=== PATIENT | male | born 1950 | race Caucasian/White ===

== ENCOUNTER 2017-03-25 14:07 | Observation (INO) | payer MEDICARE, OTHER ==
[~2017-03-25] VITALS: Ht 167.6 cm; Wt 70.8 kg
[2017-03-25] MEDS ORDERED: LOSARTAN POT25 MG PO (14:45)
[2017-03-25] MEDS ORDERED: ASPIRIN81 MG PO (14:45)
[2017-03-25] MEDS ORDERED: CARVEDILOL3.125 MG PO (14:47)
[2017-03-25] MEDS ORDERED: GABAPENTIN100 MG PO (14:47)
[2017-03-25] MEDS ORDERED: KLS OMEPRAZOLE20 MG PO (14:48)
[2017-03-25] MEDS ORDERED: RAPAFLO8 MG PO (14:49)
[2017-03-25] MEDS ORDERED: NIFEDICAL XL60 MG PO (14:49)
[2017-03-25 14:50] LABS: HEMATOCRIT 43.7 % (39.0-50.0); HEMOGLOBIN 14.1 g/dl (14.0-18.0); IMMATURE GRANULOCYTES 0.1 % (0.0-1.0); MEAN CELL VOLUME 92.4 fL CALC (80.0-100.0); MEAN CORPUSCULAR HGB 29.8 pG CALC (26.0-32.0); MEAN CORPUSCULAR HGB CONC 32.3 g/L CALC (32.0-36.0); NEUT# 6.72 thou/uL (1.82-7.42); RED BLOOD COUNT 4.73 mill/uL (4.70-6.10); RED CELL DISTRI WIDTH 12.6 % (11.5-15.5)
[2017-03-25] MEDS ORDERED: MELOXICAM7.5 MG PO (14:50)
[2017-03-25] MEDS ORDERED: ZOLPIDEM ER12.5 MG PO (14:50)
[2017-03-25] MEDS ORDERED: CLONAZEPAM1 MG PO (14:50)
[2017-03-25] MEDS ORDERED: NORTRIPTYLIN25 MG PO (14:51)
[2017-03-25] MEDS ORDERED: AMITRIPTYLIN25 MG PO (14:51)
[2017-03-25 15:06] LABS: AMYLASE 101 u/l (30-110); LIPASE 145 u/l (23-300)
[2017-03-25 15:07] LABS: ALBUMIN 4.4 g/dL (3.2-5.0); ALKALINE PHOSPHATASE 75 u/l (38-126); ANION GAP 18 (6-22 (CALC)); BILIRUBIN, TOTAL 1.2 mg/dL (0.0-1.4); BUN 22 mg/dL (8-23); BUN/CREATININE RATIO 24 (12-20 (CALC)); CALCIUM 9.4 mg/dL (8.4-10.2); CARBON DIOXIDE 29 mmol/l (22-30); CHLORIDE 98 mmol/l (95-108); CREATININE 0.9 mg/dL (0.7-1.3); GFR > 60 ML/MIN (>=60 (CALC)); GFR FOR AFR.AMER. > 60 ML/MIN (>=60 (CALC)); GLUCOSE 118 mg/dL (82-115); POTASSIUM 4.5 mmol/l (3.5-5.1); SGOT/AST 226 u/l (19-48); SGPT/ALT 104 u/l (11-66); SODIUM 139 mmol/l (137-146); TOTAL PROTEIN 7.5 g/dL (6.3-8.2)
[2017-03-25 15:19] LABS: MYOGLOBIN 53 ng/mL (0 - 121)
[2017-03-25 17:41] LABS: URINE BILIRUBIN - DIPSTICK NEGATIVE (NEGATIVE); URINE BLOOD DIPSTICK NEGATIVE (NEGATIVE); URINE CLARITY CLEAR; URINE COLOR YELLOW; URINE GLUCOSE - DIPSTICK NEGATIVE (NEGATIVE); URINE KETONE NEGATIVE (NEGATIVE); URINE LEUK ESTERASE NEGATIVE (NEGATIVE); URINE NITRITE - DIPSTICK NEGATIVE (Negative); URINE PH 5.5 (4.5-8.0); URINE PROTEIN - DIPSTICK NEGATIVE (NEG-TRACE); URINE SPECIFIC GRAVITY <=1.005; URINE UROBILINOGEN - DIPSTICK 0.2 E.U./dL (0.2)
[2017-03-25 18:07] VITALS: BP 150/78
[2017-03-25 19:30] VITALS: BP 116/62
[2017-03-25 23:50] VITALS: BP 97/62
[2017-03-26] VITALS (7 sets, daily range): BP systolic 90–118; BP diastolic 51–70
[2017-03-26 02:56] LABS: ALBUMIN 3.8 g/dL (3.2-5.0); ALKALINE PHOSPHATASE 128 u/l (38-126); ANION GAP 14 (6-22 (CALC)); BILIRUBIN, TOTAL 1.2 mg/dL (0.0-1.4); BUN 19 mg/dL (8-23); BUN/CREATININE RATIO 22 (12-20 (CALC)); CALCIUM 8.8 mg/dL (8.4-10.2); CALCULATED LDLCHOLESTEROL 65 mg/dL (62-129 (CALC)); CARBON DIOXIDE 29 mmol/l (22-30); CHLORIDE 100 mmol/l (95-108); CHOLESTEROL HDL RATIO 2.8 (<4.4 (CALC)); CREATININE 0.9 mg/dL (0.7-1.3); GFR > 60 ML/MIN (>=60 (CALC)); GFR FOR AFR.AMER. > 60 ML/MIN (>=60 (CALC)); GLUCOSE 106 mg/dL (82-115); HDL CHOLESTEROL 46 mg/dL (>=40); POTASSIUM 4.1 mmol/l (3.5-5.1); SGOT/AST 727 u/l (19-48); SGPT/ALT 591 u/l (11-66); SODIUM 139 mmol/l (137-146); TOTAL CHOLESTEROL 129 mg/dl (0-199); TOTAL PROTEIN 6.4 g/dL (6.3-8.2); TOTAL TRIGLYCERIDES 89 mg/dl (30-149); VLDL CHOLESTROL 18 mg/dl (4-45 (CALC))
[2017-03-27 00:10] VITALS: BP 110/70
[2017-03-27 04:05] VITALS: BP 118/69
[2017-03-27 06:06] LABS: HEMATOCRIT 40.3 % (39.0-50.0); HEMOGLOBIN 12.9 g/dl (14.0-18.0); IMMATURE GRANULOCYTES 0.2 % (0.0-1.0); MEAN CELL VOLUME 92.9 fL CALC (80.0-100.0); MEAN CORPUSCULAR HGB 29.7 pG CALC (26.0-32.0); NEUT# 3.83 thou/uL (1.82-7.42); RED BLOOD COUNT 4.34 mill/uL (4.70-6.10); RED CELL DISTRI WIDTH 12.9 % (11.5-15.5)
[2017-03-27 06:12] LABS: ALBUMIN 3.5 g/dL (3.2-5.0); ALKALINE PHOSPHATASE 111 u/l (38-126); AMYLASE 44 u/l (30-110); ANION GAP 15 (6-22 (CALC)); BILIRUBIN, TOTAL 0.5 mg/dL (0.0-1.4); BUN 15 mg/dL (8-23); BUN/CREATININE RATIO 20 (12-20 (CALC)); CALCIUM 9.2 mg/dL (8.4-10.2); CARBON DIOXIDE 27 mmol/l (22-30); CHLORIDE 104 mmol/l (95-108); CREATININE 0.7 mg/dL (0.7-1.3); GFR > 60 ML/MIN (>=60 (CALC)); GFR FOR AFR.AMER. > 60 ML/MIN (>=60 (CALC)); GLUCOSE 88 mg/dL (82-115); LIPASE 44 u/l (23-300); POTASSIUM 3.6 mmol/l (3.5-5.1); SGOT/AST 203 u/l (19-48); SGPT/ALT 320 u/l (11-66); SODIUM 143 mmol/l (137-146); TOTAL PROTEIN 6.1 g/dL (6.3-8.2)
[2017-03-27 08:53] VITALS: BP 119/75
[2017-03-27 09:13] VITALS: BP 119/75
== END 2017-03-27 13:40 | disposition home or self-care (01) ==
LOC: ED 14:07 → ED-I 15:29 → ED 15:48 → MS2 15:49
PROVIDERS: Emergency Medicine; Internal Medicine; ADMIT Internal Medicine; ATTEND Internal Medicine
DX: K21.9 Gastro-esophageal reflux disease without esophagitis (principal); I10 Essential (primary) hypertension; E11.42 Type 2 diabetes mellitus with diabetic polyneuropathy; I25.10 Atherosclerotic heart disease of native coronary artery without angina pectoris; N40.0 Benign prostatic hyperplasia without lower urinary tract symptoms; E78.5 Hyperlipidemia, unspecified; F41.9 Anxiety disorder, unspecified; R79.89 Other specified abnormal findings of blood chemistry; Z87.891 Personal history of nicotine dependence; Z98.84 Bariatric surgery status; R07.89 Other chest pain
CPT/HCPCS: J1650

== ENCOUNTER 2017-11-26 21:45 | Inpatient (IN) | payer MEDICARE, OTHER ==
[~2017-11-26] VITALS: Ht 167.6 cm; Wt 69.5 kg
[~2017-11-26 21:45] MED LIST: AMITRIPTYLIN25 MG PO; AMOX/K CLAV875 M1 PO; ASPIRIN81 MG PO; CARVEDILOL3.125 MG PO; CLONAZEPAM1 MG PO; DOXYCYCL HYC100 MG PO; FLORASTOR250 M1 PO; GABAPENTIN100 MG PO; KLS OMEPRAZOLE20 MG PO; LOSARTAN POT25 MG PO; MELOXICAM7.5 MG PO; NIFEDICAL XL60 MG PO; NORTRIPTYLIN25 MG PO; PERCOCET 5/321 COMBO PO; RAPAFLO8 MG PO; ZOLPIDEM ER12.5 MG PO
--- NOTE | 2017-11-26 22:08 | NUR ---
L FOOT SWOLLEN , C/O PAIN.
--- NOTE | 2017-11-26 22:08 | NUR ---
DR BERG AT BEDSIDE.
--- NOTE | 2017-11-26 22:25 | NUR ---
DR BERG AT BEDSIDE, HOLD TORADOL
[2017-11-26 22:29] LABS: IMMATURE GRANULOCYTES 0.2 % (0.0-1.0); MEAN CELL VOLUME 91.2 fL CALC (80.0-100.0); MEAN CORPUSCULAR HGB 29.3 pG CALC (26.0-32.0); MEAN CORPUSCULAR HGB CONC 32.1 g/L CALC (32.0-36.0); NEUT# 3.57 thou/uL (1.82-7.42); RED BLOOD COUNT 2.97 mill/uL (4.70-6.10); RED CELL DISTRI WIDTH 12.6 % (11.5-15.5)
[2017-11-26 22:32] LABS: HEMOGLOBIN 8.7 g/dl (14.0-18.0)
[2017-11-26 22:33] LABS: HEMATOCRIT 27.1 % (39.0-50.0)
--- NOTE | 2017-11-26 22:33 | NUR ---
ORTHO VS FLAT 90/56 P 69 SITTING 97/61 P72 UNABLE TO STAND DUE TO FOOT INJURY
--- NOTE | 2017-11-26 22:39 | NUR ---
PT TO CT.
[2017-11-26 22:48] LABS: ALBUMIN 3.6 g/dL (3.2-5.0); ALKALINE PHOSPHATASE 50 u/l (38-126); ANION GAP 17 (6-22 (CALC)); BILIRUBIN, TOTAL 0.2 mg/dL (0.0-1.4); BUN 53 mg/dL (8-23); BUN/CREATININE RATIO 51 (12-20 (CALC)); CARBON DIOXIDE 26 mmol/l (22-30); CHLORIDE 101 mmol/l (95-108); GFR > 60 ML/MIN (>=60 (CALC)); GFR FOR AFR.AMER. > 60 ML/MIN (>=60 (CALC)); POTASSIUM 4.1 mmol/l (3.5-5.1); SGOT/AST 27 u/l (19-48); SGPT/ALT 31 u/l (11-66); SODIUM 139 mmol/l (137-146)
--- NOTE | 2017-11-26 22:54 | NUR ---
PT RETURNED FROM CT.
[2017-11-26 22:58] LABS: MYOGLOBIN 54 ng/mL (0 - 121)
--- NOTE | 2017-11-26 23:05 | NUR ---
DR BERG AT BEDSIDE, RECTAL EXAM PERFORMED. GUIAC NEGATIVE.
--- NOTE | 2017-11-26 23:10 | NUR ---
OK TO GIVE TORADOL AT THIS TIME PER DR BERG. TORADOL GIVEN ORDERED.
[2017-11-26 23:15] LABS: INTERNATIONAL NORMALIZED RATIO 1.1 RATIO (0.7-1.3)
--- NOTE | 2017-11-26 23:50 | NUR ---
ENCOURAGED PT TO PROVIDE UA SPECIMAN.
[2017-11-27] VITALS (15 sets, daily range): BP systolic 92–127; BP diastolic 46–79
--- NOTE | 2017-11-27 00:49 | NUR ---
NO URINE AT THIS TIME. POSTERIOR OCL PLACED TO L FOOT. CMS INTACT.
--- NOTE | 2017-11-27 01:02 | NUR ---
REPORT CALLED TO GERARDO BOLANOS.
--- NOTE | 2017-11-27 01:12 | NUR ---
PT COND STABLE. PT TO RM 270 WITH RN ON TELE.
--- NOTE | 2017-11-27 01:14 | NUR ---
CMS INTACT TO L FOOT AFTER TRANSFER TO RM 270.
--- NOTE | 2017-11-27 02:00 | NUR ---
PATIENT ADMITTED FROM ER VIA STRETCHER WITH ER STAFF IN ATTENDANCE. PATIENT IS AWAKE ALERT AND ORIENTEDX3. ABLE TO ASSIST WITH TRANSFER TO THE BED. PATIENT WITH OCL SPLINT TO LLE-ADMITTED WITH LEFT FOOT METATARSALS FX. CMS TO LEFT FOOT WNL. PATIENT WITH IV SITE TO LEFT AC-SITE APPEARS HEALTHY WITH GOOD BLOOD RETURN. IVF NS HUNG AND INFUSING AT 125CC/HR. PATIENT INSTRUCTED REGUARDING URINE SPEC FOR LAB NEEDED-URINAL IN REACH. PATIENT DENIES ANY S/S OF BLEEDING-URINE CLEAR YELLOW, BM'S WNL-DENIES ANY DARK OR BLACK STOOLS, NO RECTAL BLEEDING. LUNGS ARE CLEAR. ABD IS SOFT WITH BS+. NO PEDAL EDEMA NOTED. PULSES ARE PALPABLE. TELE MONITORING DEVICE IN PLACE. PATIENT PROVIDED WITH PO FLUIDS. ORIENTED TO ROOM AND SURROUNDINGS. INSTRUCTED ON U SE OF NURSE CALL LIGHT SYSTEM TV REMOTE. SAFETY PRECAUTIONS REINFORCED. CALL LIGHT IN REACH. WILL CONT TO MONITOR.
--- NOTE | 2017-11-27 04:00 | NUR ---
PATIENT RESTING IN BED WITH LLE ELEVATED ON PILLOW. CMS TO LEFT TOES WNL. VOIDED 750CC OF CLEAR YELLOW URINE IN URINAL. URINE SPEC OBTAINED AND SENT TO LAB. IVF PATENT AND INFUSING ORDERED TO LEFT AC-SITE IS HEALTHY. SAFETY PRECAUTIONS REINFORCED.CALL LIGHT IN REACH. WILL CONT TO MONITOR.
--- NOTE | 2017-11-27 04:39 | NUR ---
PATIENT MEDICATED FOR LEFT FOOT PAIN WITH PERCOCET 5/325MG PO FOR 7/10 ON PAIN SCALE. CALL LIGHT IN REACH. WILL CONT TO MONITOR.
[2017-11-27 04:55] LABS: URINE BILIRUBIN - DIPSTICK NEGATIVE (NEGATIVE); URINE BLOOD DIPSTICK NEGATIVE (NEGATIVE); URINE CLARITY CLEAR; URINE COLOR YELLOW; URINE GLUCOSE - DIPSTICK NEGATIVE (NEGATIVE); URINE KETONE NEGATIVE (NEGATIVE); URINE LEUK ESTERASE NEGATIVE (NEGATIVE); URINE NITRITE - DIPSTICK NEGATIVE (Negative); URINE PH 5.5 (4.5-8.0); URINE PROTEIN - DIPSTICK NEGATIVE (NEG-TRACE); URINE UROBILINOGEN - DIPSTICK 0.2 E.U./dL (0.2)
--- NOTE | 2017-11-27 07:00 | NUR ---
REPORT RECEIVED BY BRAIN. PT IS SEMI FOWLERS IN BED WITH NO S/S OF DISTRESS NOTED. PT DENIES NEEDS AT THIS TIME. CALLL LIGHT IN REACH.
--- NOTE | 2017-11-27 07:50 | NUR ---
NOTIFIED DR. ZAPATA RE: PT COMPLAINING OF ITCHING ALL OVER HIS BODY AND NO RASH NOTED. PT STATED THAT HE HAS BEEN ITCHING FOR A FEW HOURS NOW. ORDERS RECEIVED FOR BENADRYL 25MG.
--- NOTE | 2017-11-27 07:54 | NUR ---
DR. NOGUERA'S OFFICE WAS CALLED @ 07:[address] ANAND. I GAVE HIM THE INFORMATION REGARDING THE CONSULT WITH DR. AVELINO NOGUERA.
--- NOTE | 2017-11-27 08:00 | NUR ---
ASSESSMENT DONE RESPS EVEN AND UNLABORED. TELE IN PLACE AND PT IS A&O X3. NS 125ML/HR INFUSING WELL. PT STATED PAIN IS 6/10 IN LEFT FOOT. TOLD PT WILL MEDICATED SOON MEDICATION IS DUE. PT VERBALIZED UNDERSTANDING. ELEVATED PT LEFT FOOT ON PILLOWS. SAFETY PRECAUTIONS REINFORCED AND CALL LIGHT IN REACH.
--- NOTE | 2017-11-27 08:45 | NUR ---
MIKO MCKEE ASSISTED PT TO THE WHEELCHAIR TO GO DOWN FOR HIS CT. THEN MIKO CALLED THAT PT IS UNRESPONSIVE IN WHEELCHAIR IN ROOM. PT HEAD IS LEANING BACK WITH EYES OPEN BUT UNRESPONSIVE. CHEST IS RISING. CALLED OUT FOR CICI BURT. MIKO AND I ASSISTED PT BACK TO BED. 02 APPLIED AT 2L/MIN VIA NC. CHEST RUB DONE ON PT AND PT IS RESPONSIVE. PT STATES HE FEELS WEAK.
--- NOTE | 2017-11-27 08:46 | NUR ---
MIKO MCKEE CALLED FOR CLINICAL SUPPORT. ALIE FROM ED ARRIVE AND RT KAY. INVOICE CHECKER URSULA ALSO IN ROOM. PER ALIE PT PULSE IS 69 AND O2 IS 98% WITH O2 AT 2L/MIN VIA NC. VS OBTAINED BY MIKO 121/67, P-66.
--- NOTE | 2017-11-27 08:49 | NUR ---
RT KAY DID EKG AND IT SHOWED SINUS CORRY 55.
--- NOTE | 2017-11-27 08:59 | NUR ---
TRANFER PT TO [facility] FOR HIM TO GO DOWN TO CT. PT STATED THAT HE FELT NAUSEOUS AND STARTED TO VOMIT BLOOD SMALL-MODREATED AMOUNT . CIRCUIT BOARD REPAIR TECHNICIAN IN ROOM AND ALIE IN THE HALLWAY. TAKING PT DOWN TO CT WITH RAILROAD WHEELS AND AXLE INSPECTOR AT SIDE.
--- NOTE | 2017-11-27 09:05 | NUR ---
CICI BURT CALLED RE: PT SYNCOPE AND VOMITED BLOOD.
--- NOTE | 2017-11-27 09:15 | NUR ---
PT ARRIVED TO THE UNIT VIA STRETCHER ACCOMPANIED BY NURSE, PT ASSISTED WITH SLIDING OVER TO BED, PT A & O X3, PERRL, MONITORING EQUIPMENT AND CALL CALDERÓN SYSTEM EXPLAINED TO PT PRIOR TO APPLYING MONITORING EQUIPMENT, HR 66, RESP. 20, BP 103/50, O2 100% ON 2L VIA NC, LUNG SOUNDS CLEAR IN ALL POON, 20G LAC IV, SALINE LOCKED, NO REDNESS OR DRAINAGE AT SITE, SKIN CLEAN AT INTACT, L ANKLE RAFAEL WRAPPED, CIRCULATION UNCOMPROMISED, SAFETY MEASURES INTRODUCED, CALL CALDERÓN WITHIN REACH
--- NOTE | 2017-11-27 09:15 | NUR ---
ORDERS RECEIVED FROM FOR PT TO BE TRANFER TO ICU FROM CT. PT STATED THAT HIS ITCHING WAS LESS AND MEDICATION HELPED. EXPLAINED TO PT THAT HE IS GOING TO ICU AND PT VERBALIZED UNDERSTANDING. TRANFER PT FROM STRETCHER TO ICU BED 5. REPORT GIVEN TO AUREA.
--- NOTE | 2017-11-27 09:30 | NUR ---
DR ZAPATA AT BEDSIDE DISCUSSING PLAN OF CARE AND POSSIBLE TRANSFER
--- NOTE | 2017-11-27 09:35 | NUR ---
PT EDUCATED ABOUT BLOOD TRANSFUSION AND RISK, PT VERBALIZED UNDERSTANDING, CONSENT OBTAIN
--- NOTE | 2017-11-27 09:40 | NUR ---
16F ESTRADA PLACED PER MD ORDER, SECURED WITH CATH STRAP
[2017-11-27 09:43] LABS: HEMATOCRIT 20.4 % (39.0-50.0); HEMOGLOBIN 6.6 g/dl (14.0-18.0)
--- NOTE | 2017-11-27 09:45 | NUR ---
NG TUBE PLACED PER MD ORDER, CONNECTED TO SUCTION
--- NOTE | 2017-11-27 09:55 | NUR ---
CALL PLACED TO [facility], SPOKE TO [place], GAVE PT INFO, FAXED TO FACESHEET TO [facility]
--- NOTE | 2017-11-27 10:15 | NUR ---
CALL PLACED TO PT'S BY NURSE URSULA, MADE AWARE OF PT BEING TRANSFERED TO [facility] FOR HIGHER LEVEL OF CARE, PT'S VERBALIZED UNDERSTANDING
--- NOTE | 2017-11-27 10:45 | NUR ---
PT'S AND FAMILY FRIEND AT BEDSIDE
--- NOTE | 2017-11-27 11:18 | NUR ---
CALL PLACED TO [facility], SPOKE TO CARLOS, GAVE PT INFO, ETA OF 20 MINS GIVEN
--- NOTE | 2017-11-27 11:20 | NUR ---
CALL RECEIVED FROM KAILEY FROM [facility], BED ASSIGNMENT GIVEN, PT TO GO TO ROOM 884A, REPORT TO BE CALLED TO [phone]
--- NOTE | 2017-11-27 11:50 | NUR ---
[facility] AT BEDSIDE FOR TRANSPORT
--- NOTE | 2017-11-27 12:05 | NUR ---
CALL PLACED TO [facility], SPOKE TO LAW, GAVE PT REPORT
== END 2017-11-27 11:50 | disposition short-term general hospital (02) | DRG 811 ==
LOC: ED 21:45 → ED-I 11-27 00:25 → ED 11-27 00:44 → MS2 11-27 00:45 → ICU 11-27 09:15
PROVIDERS: Emergency Medicine; ADMIT Internal Medicine; ATTEND Internal Medicine
PROC: 0T9B70Z Drainage of Bladder with Drainage Device, Via Natural or Artificial Opening (ICD-10-PCS; principal; 2017-11-27)
PROC: 30233K1 Transfusion of Nonautologous Frozen Plasma into Peripheral Vein, Percutaneous Approach (ICD-10-PCS; 2017-11-27)
PROC: 30233N1 Transfusion of Nonautologous Red Blood Cells into Peripheral Vein, Percutaneous Approach (ICD-10-PCS; 2017-11-27)
DX: D64.9 Anemia, unspecified (principal); R57.8 Other shock; K92.0 Hematemesis; S92.322A Displaced fracture of second metatarsal bone, left foot, initial encounter for closed fracture; S92.332A Displaced fracture of third metatarsal bone, left foot, initial encounter for closed fracture; S92.342A Displaced fracture of fourth metatarsal bone, left foot, initial encounter for closed fracture; I10 Essential (primary) hypertension; I25.10 Atherosclerotic heart disease of native coronary artery without angina pectoris; F41.9 Anxiety disorder, unspecified; N40.0 Benign prostatic hyperplasia without lower urinary tract symptoms; B19.20 Unspecified viral hepatitis C without hepatic coma; W19.XXXA Unspecified fall, initial encounter; Y92.000 Kitchen of unspecified non-institutional (private) residence as the place of occurrence of the external cause; Z87.891 Personal history of nicotine dependence; Z98.84 Bariatric surgery status
CPT/HCPCS: J1650; P9016

== ENCOUNTER 2017-12-12 11:38 | Emergency (ER) | payer MEDICARE, OTHER ==
[~2017-12-12] VITALS: Ht 167.6 cm; Wt 68.8 kg
[2017-12-12 12:59] LABS: HEMATOCRIT 28.9 % (39.0-50.0); HEMOGLOBIN 9.2 g/dl (14.0-18.0); IMMATURE GRANULOCYTES 0.5 % (0.0-1.0); MEAN CORPUSCULAR HGB 28.7 pG CALC (26.0-32.0); MEAN CORPUSCULAR HGB CONC 31.8 g/L CALC (32.0-36.0); NEUT# 4.7 thou/uL (1.82-7.42); RED BLOOD COUNT 3.21 mill/uL (4.70-6.10); RED CELL DISTRI WIDTH 13.5 % (11.5-15.5)
[2017-12-12 13:19] LABS: INTERNATIONAL NORMALIZED RATIO 1.2 RATIO (0.7-1.3)
[2017-12-12 13:22] LABS: ANION GAP 11 (6-22 (CALC)); BUN 17 mg/dL (8-23); BUN/CREATININE RATIO 16 (12-20 (CALC)); CARBON DIOXIDE 29 mmol/l (22-30); CHLORIDE 98 mmol/l (95-108); GFR > 60 ML/MIN (>=60 (CALC)); GFR FOR AFR.AMER. > 60 ML/MIN (>=60 (CALC)); POTASSIUM 4.1 mmol/l (3.5-5.1); SODIUM 134 mmol/l (137-146)
[2017-12-12] MEDS ORDERED: SUCRALFATE1 GM PO (14:02)
[2017-12-12] MEDS ORDERED: AMOXICILLIN500 MG PO (14:03)
[2017-12-12 14:42] VITALS: BP 126/72
== END 2017-12-12 14:43 | disposition short-term general hospital (02) ==
LOC: ED 11:38
PROVIDERS: Family Medicine
DX: K92.2 Gastrointestinal hemorrhage, unspecified (principal); R53.1 Weakness
CPT/HCPCS: S0164

== ENCOUNTER → 2018-09-06 | Outpatient (REF) | payer MEDICARE, OTHER ==
[~2018-09-06] MED LIST changes: +AMOXICILLIN500 MG PO; +SUCRALFATE1 GM PO
== END | disposition home or self-care (01) ==
LOC: DI 12:45
PROVIDERS: ATTEND Nurse Practitioner Family
DX: R05 Cough (principal)

== ENCOUNTER → 2018-09-18 | Outpatient (REF) | payer MEDICARE, OTHER ==
[2018-09-18 08:41] LABS: HEMATOCRIT 39.9 % (39.0-50.0); HEMOGLOBIN 12.4 g/dl (14.0-18.0); IMMATURE GRANULOCYTES 0.4 % (0.0-5.0); MEAN CELL VOLUME 92.6 fL CALC (80.0-100.0); MEAN CORPUSCULAR HGB 28.8 pG CALC (26.0-32.0); MEAN CORPUSCULAR HGB CONC 31.1 g/L CALC (32.0-36.0); NEUT# 3.04 thou/uL (1.82-7.42); RED BLOOD COUNT 4.31 mill/uL (4.70-6.10); RED CELL DISTRI WIDTH 12.8 % (11.5-15.5)
[2018-09-18 09:02] LABS: INTERNATIONAL NORMALIZED RATIO 1.1 RATIO (0.7-1.3); PROTHROMBIN TIME 11.7 SECONDS (9.0-12.5)
[2018-09-18 09:03] LABS: ALBUMIN 3.9 g/dL (3.2-5.0); ALKALINE PHOSPHATASE 57 u/l (38-126); ANION GAP 13 (6-22 (CALC)); BILIRUBIN, TOTAL 0.3 mg/dL (0.0-1.4); BUN 17 mg/dL (8-23); BUN/CREATININE RATIO 17 (12-20 (CALC)); CARBON DIOXIDE 31 mmol/l (22-30); CHLORIDE 100 mmol/l (95-108); GFR > 60 ML/MIN (>=60 (CALC)); GFR FOR AFR.AMER. > 60 ML/MIN (>=60 (CALC)); POTASSIUM 4.7 mmol/l (3.5-5.1); SGOT/AST 21 u/l (19-48); SODIUM 139 mmol/l (137-146); TOTAL PROTEIN 6.5 g/dL (6.3-8.2)
== END | disposition home or self-care (01) ==
LOC: LAB 07:15
PROVIDERS: ATTEND Internal Medicine Gastroenterology
DX: R94.5 Abnormal results of liver function studies (principal)

== ENCOUNTER 2018-10-30 08:34 | Observation (INO) | payer MEDICARE, OTHER ==
[~2018-10-30] VITALS: Ht 172.7 cm; Wt 96.6 kg
--- NOTE | 2018-10-30 08:55 | NUR ---
TO TX ROOM WITH STEADY GAIT
--- NOTE | 2018-10-30 09:40 | NUR ---
PT REPORTS LAST YEAR HGB WAS LOW AND HE WAS TRANSFERRED WITH SAME S/S. LABWORKED ADDED TO RX
--- NOTE | 2018-10-30 09:50 | NUR ---
Report from CICI Hernandez. Assumed care at this time
--- NOTE | 2018-10-30 09:50 | NUR ---
Pt c/o passing out and hitting head on wall. Edema noted to area. Mary RN advised there are no monitored beds available therefore pt placed in room # 4
[2018-10-30 09:54] LABS: HEMOGLOBIN 12.9 g/dl (14.0-18.0); IMMATURE GRANULOCYTES 0.2 % (0.0-5.0); MEAN CELL VOLUME 91.7 fL CALC (80.0-100.0); MEAN CORPUSCULAR HGB 28.9 pG CALC (26.0-32.0); MEAN CORPUSCULAR HGB CONC 31.5 g/L CALC (32.0-36.0); NEUT# 3.16 thou/uL (1.82-7.42); RED BLOOD COUNT 4.47 mill/uL (4.70-6.10); RED CELL DISTRI WIDTH 13.1 % (11.5-15.5)
--- NOTE | 2018-10-30 10:00 | NUR ---
Pt returned to room # 4 from radiology via stretcher in stable condition. Explained wait time for results. Showed understanding. Call mauricio within reach. Denies any needs at this time. Will continue to monitor.
[2018-10-30 10:19] LABS: ALBUMIN 4.4 g/dL (3.2-5.0); ALKALINE PHOSPHATASE 61 u/l (38-126); ANION GAP 14 (6-22 (CALC)); BILIRUBIN, TOTAL 0.4 mg/dL (0.0-1.4); BUN 14 mg/dL (8-23); BUN/CREATININE RATIO 15 (12-20 (CALC)); CARBON DIOXIDE 28 mmol/l (22-30); CHLORIDE 102 mmol/l (95-108); GFR > 60 ML/MIN (>=60 (CALC)); GFR FOR AFR.AMER. > 60 ML/MIN (>=60 (CALC)); POTASSIUM 4.8 mmol/l (3.5-5.1); SGOT/AST 26 u/l (19-48); SODIUM 139 mmol/l (137-146); TOTAL PROTEIN 7.2 g/dL (6.3-8.2)
--- NOTE | 2018-10-30 10:31 | NUR ---
EDP at bedside to examine pt
--- NOTE | 2018-10-30 11:00 | NUR ---
Pt resting on stretcher with eyes closes. Arouses to verbal stimuli. No distress noted. Pt states headache. Call mauricio within reach. Denies any needs at this time. Will continue to monitor.
--- NOTE | 2018-10-30 11:30 | NUR ---
EDP ordered additional testing and monitoring. Charge nurse advised to move pt to room # 11 for higher level of care.
--- NOTE | 2018-10-30 11:35 | NUR ---
Report given to CICI Stinson. Care relimquished at this time
--- NOTE | 2018-10-30 12:30 | NUR ---
PATIENT RESTING AWAITING LAB RESULTS. PATIENT DENIES ANY PAIN OR SOB AT THIS TIME
--- NOTE | 2018-10-30 13:38 | NUR ---
PATIENT RESTING AWAITNG ROOM ASSIGNMENT PATIENT REPORT GIVEN TO ALFRED AWAITING ADMIT ORDERS
--- NOTE | 2018-10-30 14:19 | NUR ---
PATIENT TRANSPORTED TO THE FLOOR
--- NOTE | 2018-10-30 14:23 | NUR ---
PT TRANSFERRED TO FLOOR VIA WHEELCHAIR IN STABLE CONDITION ACCOMPANIED BY CICI STRANGE;PT ALERT AND ORIENTED X3,ORIENTED TO ROOM AND CALL LIGHT SYSTEM;PT REPORTS THAT "I PASSED OUT THIS MORNING,FELL AND HIT MY HEAD OFF THE WALL";PT DENIES ANY CURRENT PAIN OR DISCOMFORTS,PAIN SCALE AND REPORTING EDUCATED;VS AND WT OBTAINED;ASSESSMENT COMPLETED;RESPIRATIONS EVEN AND UNLABORED ON RA,CLEAR LUNG SOUNDS;ABDOMEN SOFT ON PALPATION AND ACTIVE IN ALL 4 QUADRANTS;STRONG PEDAL PULSES;SKIN INTACT;#20G TO LAC FLUSHED AND PATENT,SITE APPEARS HEALTHY;TELE MONITORING IN PLACE;PT DENIES ANY ADDITIONAL NEEDS AT THIS TIME;FRESH WATER PROVIDED;PT ENCOURAGED TO CALL FOR ASSISTANCE IF NEEDED;FALL PRECAUTIONS IN PLACE WITH CALL LIGHT IN REACH;WILL CONTINUE TO MONITOR
[2018-10-30 14:32] VITALS: BP 123/76
[2018-10-30 15:30] VITALS: BP 133/74
[2018-10-30 15:50] VITALS: BP 115/76; BP 117/76
--- NOTE | 2018-10-30 15:50 | NUR ---
ORTHOSTATICS BP OBTAINED OBTAINED SUPINE BP 117/76 HR 50 O2 SATS 99%. SITTING BP 115/76 HR 54 O2 99%.STANDING BP 117/82 HR 60 O2 SATS 100%.
[2018-10-30 16:00] VITALS: BP 117/82
--- NOTE | 2018-10-30 16:35 | NUR ---
AT BEDSIDE DISCUSSING POC.
--- NOTE | 2018-10-30 19:00 | NUR ---
RECEIVED REPORT FROM NURSE FREDRICK PATIENT CURRENTLY RESTING IN BED WTACHING TV , DENIES PAIN OR DISCOMFORTS AT THIS TIME, CALL LIGHT AT REACH.
[2018-10-30 19:20] VITALS: BP 121/87
--- NOTE | 2018-10-30 20:00 | NUR ---
PATIENT ALERT AND ORIENTED X4 ABLE TO MAKE NEEDS KNOWN, WITH SALINE LOCK ON LAC G20 PATENT FLUSHES WELL, REMAINS ON TELE SB 57, LAST BM 10/30, CALL LIGHT AT REACH.
--- NOTE | 2018-10-30 22:10 | NUR ---
ECHO DONE AT BEDSIDE
[2018-10-30 23:45] VITALS: BP 138/78
--- NOTE | 2018-10-31 01:00 | NUR ---
PATIENT APPEARS TO BE SLEEPING WITH EYES CLOSED, NO DISCOMFORTS NOTED AT THIS TIME, CALL LIGHT AT REACH.
--- NOTE | 2018-10-31 04:32 | NUR ---
PATIENT RESTING IN BED ALERT AND ORIENTED, REMAINS ON TELE SB 50, DENIES PAIN OR DISCOMFORTS, WITH EVEN UNLABORED BREATHING CALL LIGHTT WITHIN REACH.
[2018-10-31 05:03] LABS: HEMATOCRIT 42.2 % (39.0-50.0); HEMOGLOBIN 13.3 g/dl (14.0-18.0); IMMATURE GRANULOCYTES 0.4 % (0.0-5.0); MEAN CELL VOLUME 91.5 fL CALC (80.0-100.0); MEAN CORPUSCULAR HGB 28.9 pG CALC (26.0-32.0); MEAN CORPUSCULAR HGB CONC 31.5 g/L CALC (32.0-36.0); NEUT# 3.07 thou/uL (1.82-7.42); RED BLOOD COUNT 4.61 mill/uL (4.70-6.10); RED CELL DISTRI WIDTH 13.2 % (11.5-15.5)
[2018-10-31 05:04] VITALS: BP 150/83
[2018-10-31 05:26] LABS: ALBUMIN 4.3 g/dL (3.2-5.0); ALKALINE PHOSPHATASE 69 u/l (38-126); AMYLASE 70 u/l (30-110); ANION GAP 12 (6-22 (CALC)); BILIRUBIN, TOTAL 0.6 mg/dL (0.0-1.4); BUN 15 mg/dL (8-23); BUN/CREATININE RATIO 18 (12-20 (CALC)); CARBON DIOXIDE 30 mmol/l (22-30); CHLORIDE 101 mmol/l (95-108); CREATININE 0.8 mg/dL (0.7-1.3); GFR > 60 ML/MIN (>=60 (CALC)); GFR FOR AFR.AMER. > 60 ML/MIN (>=60 (CALC)); LIPASE 75 u/l (23-300); POTASSIUM 4.4 mmol/l (3.5-5.1); SGOT/AST 27 u/l (19-48); SODIUM 138 mmol/l (137-146); TOTAL PROTEIN 6.7 g/dL (6.3-8.2)
--- NOTE | 2018-10-31 05:29 | NUR ---
PATIENT C/O OF HEADACHE, PATIENT ALERT AND ORIENTEDX4, STATED THAT HE DOEN'T HAVE ALLERGIES TO TYLENOL THAT HE IS TAKING IT FOR SEVERAL YEARS NOW.
[2018-10-31 06:14] VITALS: BP 123/85; BP 147/79
[2018-10-31 06:15] VITALS: BP 145/94
--- NOTE | 2018-10-31 07:20 | NUR ---
REPORT RECEIVED FROM CICI HOLLIS;PT RESTING IN SUPINE POSITION;INTRODUCED SELF TO PT AND POC DISCUSSED;PT DENIES ANY CURRENT PAIN OR NEEDS;TELE MONITORING IN PLACE;PT ENCOURAGED TO CALL FOR ASSISTANCE IF NEEDED;FALL PRECAUTIONS IN PLACE WITH BED IN THE LOWEST POSITION AND CALL LIGHT IN REACH;WILL CONTINUE TO MONITOR
--- NOTE | 2018-10-31 08:50 | NUR ---
PT RESTING IN SEMI FOWLERS POSITION,A&O X3; VS OBTAINED AND ASSESSMENT COMPLETED;PT DENIES ANY CURRENT PAIN OR DIZZINESS,PAIN SCALE AND REPORTING EDUCATED;RESPIRATIONS EVEN AND UNLABORED ON RA,CLEAR LUNG SOUNDS;ABDOMEN SOFT ON PALPATION AND ACTIVE IN ALL 4 QUADRANTS;STRONG PEDAL PULSES;SKIN INTACT;#20G TO LAC FLUSHED AND PATENT,SITE APPEARS HEALTHY;TELE MONITORING IN PLACE;PT DENIES ANY ADDITIONAL NEEDS AT THIS TIME AND IS ENCOURAGED TO CALL FOR ASSISTANCE IF NEEDED;CALL LIGHT IN REACH;WILL CONTINUE TO MONITOR
[2018-10-31 08:51] VITALS: BP 150/86
[2018-10-31 10:53] VITALS: BP 146/84
--- NOTE | 2018-10-31 11:14 | NUR ---
PT RESTING IN BED WITH SPOUSE AT BEDSIDE;RESPIRATIONS EVEN AND UNLABORED ON RA;PT DENIES ANY CURRENT PAIN OR NEEDS;TELE MONITORING IN PLACE; AT BEDSIDE DISCUSSING POC INCLUDING D/C PLAN,PT AND SPOUSE VERBALIZE UNDERSTANDING;AWAITING D/C ORDERS AT THIS TIME;PT ENCOURAGED TO CALL FOR ASSISTANCE IF NEEDED;CALL LIGHT IN REACH;WILL CONTINUE TO MONITOR
--- NOTE | 2018-10-31 14:05 | NUR ---
ALL DISCHARGE INSTRUCTIONS PROVIDED AT THIS TIME,QUESTIONS ANSWERED;PT ENCOURAGED TO FOLLOW UP WITH PCP AND MONITOR BP DAILY.HOLD COREG OF RIGHT NOW;IV SITE REMOVED WITH CATHETER INTACT;PT DENIES ANY ADDITIONAL NEEDS AND REFUSES WHEELCHAIR FOR D/C HOME.PT TO BE ACCOMPANIED BY SPOUSE.
--- NOTE | 2018-10-31 14:13 | NUR ---
Discharge instructions given. Patient verbalizes understanding of same. Discharged in stable condition via Ambulatory to Home with spouse. All belongings sent with pt. Pt ambulated with a steady gait in stable condition accompanied by spouse.
== END 2018-10-31 14:10 | disposition home or self-care (01) ==
LOC: ED 08:34 → ED-I 12:50 → ED 13:21 → MS2 13:22
PROVIDERS: Emergency Medicine; ADMIT Internal Medicine Nephrology; ATTEND Internal Medicine Nephrology
DX: R55 Syncope and collapse (principal); I10 Essential (primary) hypertension; F41.9 Anxiety disorder, unspecified; N40.0 Benign prostatic hyperplasia without lower urinary tract symptoms; E78.5 Hyperlipidemia, unspecified; B19.20 Unspecified viral hepatitis C without hepatic coma; G62.9 Polyneuropathy, unspecified; K21.9 Gastro-esophageal reflux disease without esophagitis; I34.0 Nonrheumatic mitral (valve) insufficiency; R00.1 Bradycardia, unspecified; S09.90XA Unspecified injury of head, initial encounter; W18.39XA Other fall on same level, initial encounter; Y93.E8 Activity, other personal hygiene; Y92.002 Bathroom of unspecified non-institutional (private) residence as the place of occurrence of the external cause; Z98.84 Bariatric surgery status; Z87.891 Personal history of nicotine dependence

== ENCOUNTER 2019-07-12 10:10 | Inpatient (IN) | payer MEDICARE, OTHER ==
[~2019-07-12] VITALS: Ht 175.3 cm; Wt 69.9 kg
[2019-07-12] MEDS ORDERED: PROTONIX40 M2 PO (11:20)
[2019-07-16] VITALS (9 sets, daily range): BP systolic 114–179; BP diastolic 41–99
[2019-07-16 07:05] LABS: HEMATOCRIT 41.3 % (39.0-50.0); HEMOGLOBIN 12.8 g/dl (14.0-18.0); IMMATURE GRANULOCYTES 0.3 % (0.0-5.0); MEAN CELL VOLUME 93.2 fL CALC (80.0-100.0); MEAN CORPUSCULAR HGB 28.9 pG CALC (26.0-32.0); NEUT# 4.62 thou/uL (1.82-7.42); RED BLOOD COUNT 4.43 mill/uL (4.70-6.10); RED CELL DISTRI WIDTH 12.8 % (11.5-15.5)
[2019-07-16 07:18] LABS: ALBUMIN 4.3 g/dL (3.2-5.0); ALKALINE PHOSPHATASE 44 u/l (38-126); BILIRUBIN, TOTAL 0.7 mg/dL (0.0-1.4); BUN 17 mg/dL (8-23); BUN/CREATININE RATIO 20 (12-20 (CALC)); CARBON DIOXIDE 30 mmol/l (22-30); CHLORIDE 101 mmol/l (95-108); CREATININE 0.9 mg/dL (0.7-1.3); GFR > 60 ML/MIN (>=60 (CALC)); GFR FOR AFR.AMER. > 60 ML/MIN (>=60 (CALC)); SGOT/AST 39 u/l (19-48); SODIUM 137 mmol/l (137-146); TOTAL PROTEIN 7.5 g/dL (6.3-8.2)
[2019-07-16 07:19] LABS: ACT PARTIAL THROMBO TIME 27.1 SECONDS (20.0-32.5); INTERNATIONAL NORMALIZED RATIO 1.1 RATIO (0.7-1.3); PROTHROMBIN TIME 11.2 SECONDS (9.0-12.5)
[2019-07-16 07:20] LABS: ANION GAP 11 (6-22 (CALC))
[2019-07-16 07:25] LABS: POTASSIUM 5.3 mmol/l (3.5-5.1)
[2019-07-17 00:29] VITALS: BP 138/89
[2019-07-17 04:15] VITALS: BP 142/80
[2019-07-17 06:59] LABS: ANION GAP 14 (6-22 (CALC)); BUN 13 mg/dL (8-23); BUN/CREATININE RATIO 17 (12-20 (CALC)); CARBON DIOXIDE 30 mmol/l (22-30); CHLORIDE 95 mmol/l (95-108); CREATININE 0.8 mg/dL (0.7-1.3); GFR > 60 ML/MIN (>=60 (CALC)); GFR FOR AFR.AMER. > 60 ML/MIN (>=60 (CALC)); MAGNESIUM 1.7 mg/dL (1.6-2.3); POTASSIUM 4.9 mmol/l (3.5-5.1); SODIUM 134 mmol/l (137-146)
[2019-07-17 07:14] LABS: HEMATOCRIT 43.6 % (39.0-50.0); HEMOGLOBIN 13.7 g/dl (14.0-18.0); IMMATURE GRANULOCYTES 0.6 % (0.0-5.0); MEAN CELL VOLUME 92.2 fL CALC (80.0-100.0); MEAN CORPUSCULAR HGB CONC 31.4 g/L CALC (32.0-36.0); NEUT# 8.54 thou/uL (1.82-7.42); RED BLOOD COUNT 4.73 mill/uL (4.70-6.10); RED CELL DISTRI WIDTH 13.1 % (11.5-15.5)
[2019-07-17 08:00] VITALS: BP 157/87
[2019-07-17 11:20] VITALS: BP 141/77
[2019-07-17 16:00] VITALS: BP 110/67
[2019-07-17 20:00] VITALS: BP 140/80
[2019-07-18] VITALS: BP 112/66
[2019-07-18 04:00] VITALS: BP 114/73
[2019-07-18 05:05] LABS: HEMOGLOBIN 11.9 g/dl (14.0-18.0)
[2019-07-18 05:15] LABS: HEMATOCRIT 37.2 % (39.0-50.0)
[2019-07-18 07:54] VITALS: BP 93/67
[2019-07-18 12:00] VITALS: BP 121/75
[2019-07-18 16:00] VITALS: BP 113/69
[2019-07-18 19:00] VITALS: BP 118/70
[2019-07-19] VITALS: BP 113/78
[2019-07-19 04:00] VITALS: BP 121/71
[2019-07-19 05:33] LABS: HEMOGLOBIN 10.9 g/dl (14.0-18.0)
[2019-07-19 09:22] VITALS: BP 125/67
[2019-07-19 09:26] VITALS: BP 125/67
[2019-07-19] MEDS ORDERED: ASPIRIN EC325 M1 PO (10:23)
[2019-07-19] MEDS ORDERED: PERCOCET 10/31 COMBO PO (10:23)
[2019-09-05] MEDS ORDERED: AMBIEN5 MG PO (11:48)
== END 2019-07-19 12:58 | DRG 470 ==
LOC: MS2 07-16 06:26
PROVIDERS: Nurse Practitioner Family; ADMIT Orthopaedic Surgery; ATTEND Internal Medicine
PROC: 0SRC0J9 Replacement of Right Knee Joint with Synthetic Substitute, Cemented, Open Approach (ICD-10-PCS; principal; 2019-07-16)
DX: M17.0 Bilateral primary osteoarthritis of knee (principal); I10 Essential (primary) hypertension; I25.10 Atherosclerotic heart disease of native coronary artery without angina pectoris; F41.9 Anxiety disorder, unspecified; N40.0 Benign prostatic hyperplasia without lower urinary tract symptoms; B19.20 Unspecified viral hepatitis C without hepatic coma; E78.5 Hyperlipidemia, unspecified; L29.9 Pruritus, unspecified; T40.2X5A Adverse effect of other opioids, initial encounter; Z87.891 Personal history of nicotine dependence
CPT/HCPCS: J0131; J2270

== ENCOUNTER 2019-08-04 12:04 | Observation (INO) | payer MEDICARE, OTHER ==
[~2019-08-04] VITALS: Ht 175.3 cm; Wt 72.6 kg
[~2019-08-04 12:04] MED LIST changes: +ASPIRIN EC325 M1 PO; +PERCOCET 10/31 COMBO PO; +PROTONIX40 M2 PO
--- NOTE | 2019-08-04 12:16 | NUR ---
PATIENT TO ROOM VIA WHEELCHAIR AND PHYSICIAN NOTIFIED OF PATIENT STATUS
[2019-08-04] MEDS ORDERED: TAMSULOSIN HCL0.4 MG PO (13:17)
--- NOTE | 2019-08-04 13:19 | NUR ---
PT AWARE OF NEEDED URINE, WATER PROVIDED PT REQUESTED TO STIMULATE URINE.
--- NOTE | 2019-08-04 13:20 | NUR ---
PT PRESENTS WITH WEAKNESS AND LETHARGY. PT STATES HAVING A TEMP LAST NIGHT OF 102.4 F. PT TOOK TYLENOL THAT DROPPED TEMP TO 101.0 F. AFTER A FEW DOSES MORE PT WAS AFIBRILE. PT DENIES DIZZINESS, BLURRED VISION, AND N/V. LUNGS ARE CLEAR ON RIGHT LUNG, CRACKLES HEARD IN LEFT LOWER LUNG. PT AFIBRILE AT THIS TIME. CAP REFILL BRISK AND PT AOX4. O2 SAT 99%
[2019-08-04 13:30] LABS: HEMATOCRIT 34.3 % (39.0-50.0); HEMOGLOBIN 10.7 g/dl (14.0-18.0); IMMATURE GRANULOCYTES 0.6 % (0.0-5.0); MEAN CELL VOLUME 93.7 fL CALC (80.0-100.0); MEAN CORPUSCULAR HGB 29.2 pG CALC (26.0-32.0); MEAN CORPUSCULAR HGB CONC 31.2 g/L CALC (32.0-36.0); NEUT# 14.71 thou/uL (1.82-7.42); RED BLOOD COUNT 3.66 mill/uL (4.70-6.10); RED CELL DISTRI WIDTH 13.1 % (11.5-15.5)
[2019-08-04 13:54] LABS: URINE BILIRUBIN - DIPSTICK NEGATIVE (NEGATIVE); URINE BLOOD DIPSTICK TRACE-INTACT (NEGATIVE); URINE COLOR YELLOW; URINE GLUCOSE - DIPSTICK NEGATIVE (NEGATIVE); URINE KETONE NEGATIVE (NEGATIVE); URINE NITRITE - DIPSTICK NEGATIVE (Negative); URINE PH 5.5 (4.5-8.0); URINE PROTEIN - DIPSTICK NEGATIVE (NEG-TRACE); URINE SPECIFIC GRAVITY <=1.005; URINE UROBILINOGEN - DIPSTICK 0.2 E.U./dL (0.2)
[2019-08-04 13:57] LABS: URINE LEUK ESTERASE LARGE (NEGATIVE)
[2019-08-04 14:10] LABS: BILIRUBIN, TOTAL 0.7 mg/dL (0.0-1.4); BUN 23 mg/dL (8-23); BUN/CREATININE RATIO 22 (12-20 (CALC)); CARBON DIOXIDE 27 mmol/l (22-30); CHLORIDE 96 mmol/l (95-108); GFR > 60 ML/MIN (>=60 (CALC)); GFR FOR AFR.AMER. > 60 ML/MIN (>=60 (CALC)); POTASSIUM 4.2 mmol/l (3.5-5.1); SGOT/AST 30 u/l (19-48); TOTAL PROTEIN 6.3 g/dL (6.3-8.2)
[2019-08-04 14:12] LABS: ALBUMIN 3.4 g/dL (3.2-5.0); ALKALINE PHOSPHATASE 85 u/l (38-126)
[2019-08-04 14:15] LABS: URINE BACTERIA MANY hpf; URINE SQUAMOUS EPITHELIAL CELL FEW EPI/hpf (0-FEW); URINE WBC TNTC WBC/hpf (0-5)
[2019-08-04 14:26] LABS: ANION GAP 15 (6-22 (CALC)); SODIUM 134 mmol/l (137-146)
--- NOTE | 2019-08-04 14:30 | NUR ---
ANTIBIOTICS INFUSING WITHOUT COMPLICATIONS. PT DENIES ANY NEEDS AT THIS TIME
--- NOTE | 2019-08-04 15:16 | NUR ---
PT REQUESTS FOR WARM BLANKETS AND HAD QUESTIONS ABOUT DX AND EXPLAINATION TO WHY HE HAS PENDING ADMIT ORDERS. INFORMATION PROVIDED AND PT DENIED ANY OTHER NEEDS
--- NOTE | 2019-08-04 16:30 | NUR ---
REPORT SARA TO GONZALO AND SHE STATED THAT A CALL SHALL BE RECIEVED BY HER SHORTLY WHEN THE ROOM IS CLEANED
--- NOTE | 2019-08-04 17:40 | NUR ---
PT ARRIVED FROM ER VIA WC WITH NO DISTRESS NOTED. IV SITE IS FREE FROM REDNESS OR EDEMA. TELE MONITOR IN PLACE
--- NOTE | 2019-08-04 17:45 | NUR ---
PT TRANSPORTED UPSTAIRS TO MED SURG VIA W/C STABLE AND IN NO DISTRESS. CARE ASSUMED TO GONZALO BOLANOS
[2019-08-04 17:48] VITALS: BP 154/90
--- NOTE | 2019-08-04 17:52 | NUR ---
ASSESSMENT IS COMPLETED: IV SITE IS FREE FROM REDNESS OR EDEMA. HR IS REG,PULSES ARE STRONG X4,. ABD IS SOFT WITH ACTIVE BS. BREATH SOUNDS ARE CLEAR AND DIMINISHED. TELE MONTIOR IN PLACE. CONTINUE TO OBSERVE AND MONITOR.
[2019-08-04 18:50] VITALS: BP 120/67
--- NOTE | 2019-08-04 19:30 | NUR ---
PATIENT RESTING IN BED AT THIS TIME-AWAKE ALERT AND ORIENTEDX3. PATIENT WITH IV SITE TO RAC INTACT AND APPEARS HEALTHY. PATIENT ADMITTED FOR UTI AND PNEUMONIA. S/P RIGHT TKR APPROX 07/[address] HART HERE AT [facility]. WAS UNABLE TO VOID AND WENT HOME WITH ESTRADA CATH. SAW DR. LONGO YESTERDAY IN HIS OFFICE AND THE CATH WAS REMOVED. WAS ABLE TO VOID WITH JUST SLIGHT BURNING BUT DEVELOPED FEVER LAST NIGHT. RIGHT KNEE INCISION IS INTACT AND WELL APPROXIMATED-ONLY SLIGHT SWELLING. TELE MONITOR IN PLACE. SAFETY PRECAUTIONS REINFORCED. CALL LIGHT IN REACH. WILL CONT TO MONITOR.
--- NOTE | 2019-08-04 20:10 | NUR ---
SPOKE WITH DR. ELIZALDE REGUARDING PATIENT STATUS-NEW ORDERS RECIEVED. BNP AND LACTIC ACID ORDERED. NEW MED ORDERS RECEIVED-WILL MEDICATED WHEN PROFILED ON EMAR. PATIENT ADVISED OF NEW ORDERS. CALL LIGHT IN REACH. WILL CONT TO MONITOR.
--- NOTE | 2019-08-04 22:00 | NUR ---
BMP WAS 599, LACTIC ACID 2.0-DR. ELIZALDE NOTIFIED OF BMP AND IVF PUT ON HOLD AT THIS TIME. LEVAQUIN INFUSING ORDERED VIA [facility] SITE. MEDICATED FOR PAIN WITH PERCOCET AND FOR TEMP WITH TYLENOL. PATIENT IS VOIDING QS 300CC OF RUBI URINE IN URINAL. KLONOPIN 1 MG GIVEN TO HELP WITH SLEEP. SAFETY PRECAUTIONS REINFORCED. CALL LIGHT IN REACH. WILL CONT TO MONITOR.
[2019-08-04 23:35] VITALS: BP 90/52
--- NOTE | 2019-08-05 | NUR ---
APPEARS SLEEPING AT THIS ITME WITH EYES CLOSED. RESP ARE EVEN AND UNLABORED AT THIS TIME. TELE MONITOR IN PLACE. CALL LIGHT IN REACH. WILL CONT TO MONITOR.
[2019-08-05 01:40] VITALS: BP 90/56
--- NOTE | 2019-08-05 04:00 | NUR ---
APPEARS SLEEPING AT THIS TIME WITH EYES CLOSED. RESP ARE EVEN AND UNLABORED. TELE MONITOR IN PLACE. CALL LIGHT IN REACH. WILL CONT TO MONITOR.
[2019-08-05 04:30] VITALS: BP 114/73
[2019-08-05 06:43] LABS: HEMATOCRIT 33.7 % (39.0-50.0); HEMOGLOBIN 10.2 g/dl (14.0-18.0); IMMATURE GRANULOCYTES 0.5 % (0.0-5.0); MEAN CELL VOLUME 94.9 fL CALC (80.0-100.0); MEAN CORPUSCULAR HGB 28.7 pG CALC (26.0-32.0); MEAN CORPUSCULAR HGB CONC 30.3 g/L CALC (32.0-36.0); NEUT# 9.49 thou/uL (1.82-7.42); RED BLOOD COUNT 3.55 mill/uL (4.70-6.10); RED CELL DISTRI WIDTH 13.2 % (11.5-15.5)
[2019-08-05 08:00] VITALS: BP 91/52
--- NOTE | 2019-08-05 08:00 | NUR ---
ASSESSMENT IS COMPLETED: IV SITE IS FREE FROM REDNESS OR EDEMA. HR IS REG,PULSES ARE STRONG X4, ABD IS SOFT WITH ACTIVE BS. BREATH SOUNDS ARE CLEAR AND DIMINSHED. TELE MONITOR IN PLACE CONTINUE TO OBSERVE AND MONITOR.
[2019-08-05 11:06] VITALS: BP 97/54
--- NOTE | 2019-08-05 11:15 | NUR ---
I HR AFTER VOIDING BLADDER SCAN REVEALED 449. PT STATED " I JUST FINISHED DRINKING A CUP OF COFFEE" WILL RESCAN AGAIN AFTER VOIDING.
--- NOTE | 2019-08-05 12:15 | NUR ---
PT IS RELAXING IN BED WITH NO DISTRESS NOTED. IV SITE IS FREE FROM REDNESS OR EDEMA. FAMILY ON THE PHONE INQUIRING ABOUT WHY THEY WERE SENDING HIM HOME.EXPLAINED THAT HE WILL SEE THE DR THIS WEEK
[2019-08-05] MEDS ORDERED: CIPROFLOXACN500 MG PO (14:32)
--- NOTE | 2019-08-05 16:15 | NUR ---
IV SITE DISCONTINUED CATHETER INTACT. NO REDNESS OR EDEMA. DISCHARGE INSTRUCTIONS GIVEN. IN THE ROOM. EXPLAINED ABOUT THE ABT AND LITERATURE WAS GIVEN. CONTINEU TO OBSERVE AND MONITOR. Discharge instructions given. Patient verbalizes understanding of same. Discharged in stable condition via Wheelchair to Home with family. All belongings sent with pt.
--- NOTE | 2019-08-07 13:51 | NUR ---
Completed post discharge pneumonia follow up call on 08/07/19 @ 1:35 PM. Pt. is taking medication prescribed upon discharge and has a f/u appointment scheduled tomorrow with PCP. Pt. states he coninues to have burning sensation in lung and cough. Pt. is also experiencing constipation. Inquired if this could be attributed to Cipro. When asked, pt. indicates he did take pain medication while hospitalized. Encouraged to discuss with PCP tomorrow and to drink plenty of fluids in the meantime. States he is drinking water and prune juice. No other needs or questions per patient. Appreciative of call.
[2019-09-05] MEDS ORDERED: AMBIEN5 MG PO (11:48)
== END 2019-08-05 16:17 | disposition home health service (06) ==
LOC: ED 12:04 → ED-I 14:26 → ED 14:35 → ED-I 14:36 → MS2 16:00
PROVIDERS: ADMIT Internal Medicine; ATTEND Internal Medicine
DX: A41.9 Sepsis, unspecified organism (principal); N39.0 Urinary tract infection, site not specified; J18.9 Pneumonia, unspecified organism; I10 Essential (primary) hypertension; I25.10 Atherosclerotic heart disease of native coronary artery without angina pectoris; N40.0 Benign prostatic hyperplasia without lower urinary tract symptoms; B19.20 Unspecified viral hepatitis C without hepatic coma; B96.1 Klebsiella pneumoniae [K. pneumoniae] as the cause of diseases classified elsewhere; Z87.891 Personal history of nicotine dependence; Z96.651 Presence of right artificial knee joint; Z87.01 Personal history of pneumonia (recurrent)
CPT/HCPCS: G0378

== ENCOUNTER 2019-08-09 10:20 | Inpatient (IN) | payer MEDICARE, OTHER ==
[~2019-08-09] VITALS: Ht 175.3 cm; Wt 71.4 kg
[~2019-08-09 10:20] MED LIST changes: +CIPROFLOXACN500 MG PO; +TAMSULOSIN HCL0.4 MG PO
--- NOTE | 2019-08-09 10:40 | NUR ---
PT AMB TO ROOM WITH STEADY GAIT
[2019-08-09 11:20] LABS: HEMATOCRIT 33.8 % (39.0-50.0); HEMOGLOBIN 10.4 g/dl (14.0-18.0); MEAN CELL VOLUME 92.1 fL CALC (80.0-100.0); MEAN CORPUSCULAR HGB 28.3 pG CALC (26.0-32.0); MEAN CORPUSCULAR HGB CONC 30.8 g/L CALC (32.0-36.0); NEUT# 4.36 thou/uL (1.82-7.42); RED BLOOD COUNT 3.67 mill/uL (4.70-6.10); RED CELL DISTRI WIDTH 13.4 % (11.5-15.5)
--- NOTE | 2019-08-09 11:31 | NUR ---
PT RESTING ON STRETCHER; NO S/S OF DISTRESS NOTED; IV ANTIBIOTICS INFUSING; PT ADVISED OF CONTINUED WAIT TIME; CALL LIGHT WITHIN REACH; WILL CONTINUE TO MONITOR
[2019-08-09 11:40] LABS: ALBUMIN 3.7 g/dL (3.2-5.0); ALKALINE PHOSPHATASE 85 u/l (38-126); ANION GAP 16 (6-22 (CALC)); BILIRUBIN, TOTAL 0.5 mg/dL (0.0-1.4); BUN 16 mg/dL (8-23); BUN/CREATININE RATIO 19 (12-20 (CALC)); CARBON DIOXIDE 26 mmol/l (22-30); CHLORIDE 99 mmol/l (95-108); CREATININE 0.8 mg/dL (0.7-1.3); GFR > 60 ML/MIN (>=60 (CALC)); GFR FOR AFR.AMER. > 60 ML/MIN (>=60 (CALC)); POTASSIUM 4.5 mmol/l (3.5-5.1); SGOT/AST 31 u/l (19-48); SODIUM 136 mmol/l (137-146); TOTAL PROTEIN 6.9 g/dL (6.3-8.2)
--- NOTE | 2019-08-09 12:00 | NUR ---
PT RESTING ON STRETCHER; NO S/S OF DISTRESS NOTED; VSS; PT ADVISED OF CONTINUED WAIT TIME;
--- NOTE | 2019-08-09 12:48 | NUR ---
DR LEWIS AT BEDSIDE TO DISCUSS POC
--- NOTE | 2019-08-09 13:40 | NUR ---
PT RESTING ON STRETCHER; NO S/S OF DISTRESS NOTED; PT DENIES ANY SOB; VSS; WILL CONTINUE TO MONITOR
--- NOTE | 2019-08-09 14:30 | NUR ---
PT RESTING ON STRETCHER; ADVISED OF CONTINUED WAIT TIME; WILL CONTINUE TO MONITOR
--- NOTE | 2019-08-09 15:28 | NUR ---
Admission Note Report Given to: CICI AVALOS Transported by: X Wheelchair Stretcher Transported with: X Nurse Transporter X Patent IV O2 Contact Center Associate Location: ICU X MS2
[2019-08-09 15:32] VITALS: BP 146/81
--- NOTE | 2019-08-09 16:18 | NUR ---
S: JESSE QUEEN is a 69 M who presents with pneumonia. He has a history of HTN, CKD, lung disease, hyperlipidemia, prostate problems, and GI bleed. All medications in patient's chart were reviewed. O: VS: BP 146/81 mmHg, P: 72 beats/min, RR: 18 breaths/min, T: 97.1 F W: 71.4 kg, HT: 69 in, Scr: 0.8 mg/dL, CrCl: 68.1 ml/min A: Blood culture is pending. P: Patient is on cefepime 2 gm IV Q12H. Vancomycin ordered for pharmacy to dose. Start Vancomycin 750 mg IV Q12H. Vancomycin trough is drawn before the 4th dose on 08/10/19 at 23:30. Vancomycin goal trough is between 15-20 mcg/ml. Pharmacy will follow and or advise on antibiotics use as needed.
--- NOTE | 2019-08-09 17:00 | NUR ---
REPORT RECEIVED FROM MINAL SMITH ARRIVED ON UNIT VIA W/C @ 5957 AND AMBULATED TO BED WHERE HE SETTLED IN. ALERT AND ORIENTED X 3, C/O MILD DULL PAIN TO EPIGASTRIC AREA AGGRAVATED BY COUGHING, ORIENTED TO ROOM AND CALL CALDERÓN, VITAL SIGNS MEASURED AND RECORDED, WILL CONTINUE TO MONITOR.
[2019-08-09 18:04] LABS: URINE BILIRUBIN - DIPSTICK NEGATIVE (NEGATIVE); URINE BLOOD DIPSTICK NEGATIVE (NEGATIVE); URINE COLOR YELLOW; URINE GLUCOSE - DIPSTICK NEGATIVE (NEGATIVE); URINE KETONE NEGATIVE (NEGATIVE); URINE LEUK ESTERASE NEGATIVE (NEGATIVE); URINE NITRITE - DIPSTICK NEGATIVE (Negative); URINE PROTEIN - DIPSTICK NEGATIVE (NEG-TRACE); URINE SPECIFIC GRAVITY <=1.005; URINE UROBILINOGEN - DIPSTICK 0.2 E.U./dL (0.2)
[2019-08-09 18:40] VITALS: BP 141/84
--- NOTE | 2019-08-09 20:45 | NUR ---
PT RESTING IN BED, NO SIGNS OF DISTRESS NOTED,RESP EVEN AND UNLABORED. PT ALERT AND ORIENTED X3, DISCUSSED POC, INITIATED IVF AND PT DEMONSTRATED USE OF INCENTIVE SPIROMETER, PT REACHED 2000ML. ASSESSMENT COMPLETED. CALL LIGHT IN REACH,CONTINUE TO MONITOR.
--- NOTE | 2019-08-10 | NUR ---
IV LISSETO INITIATED. PT VOICES NO NEEDS OR COMPLAINTS AT THIS TIME, CALL LIGHT IN REACH,CONTINUE TO MONITOR.
--- NOTE | 2019-08-10 03:37 | NUR ---
PT RESTING IN BED, NO SIGNS OF DISTRESS NOTED. RESP EVEN AND UNLABORED. PT VOICES NO NEEDS OR COMPLAINTS AT THIS TIME, IV ANTIBIOTIC HUNG. CALL LIGHT IN REACH,CONTINUE TO MONITOR.
[2019-08-10 03:40] VITALS: BP 139/83
[2019-08-10 05:50] LABS: HEMATOCRIT 33.3 % (39.0-50.0); HEMOGLOBIN 10.1 g/dl (14.0-18.0); IMMATURE GRANULOCYTES 0.8 % (0.0-5.0); MEAN CELL VOLUME 93.3 fL CALC (80.0-100.0); MEAN CORPUSCULAR HGB 28.3 pG CALC (26.0-32.0); MEAN CORPUSCULAR HGB CONC 30.3 g/L CALC (32.0-36.0); NEUT# 3.85 thou/uL (1.82-7.42); RED BLOOD COUNT 3.57 mill/uL (4.70-6.10); RED CELL DISTRI WIDTH 13.4 % (11.5-15.5)
[2019-08-10 06:14] LABS: ANION GAP 11 (6-22 (CALC)); BUN 16 mg/dL (8-23); BUN/CREATININE RATIO 17 (12-20 (CALC)); CARBON DIOXIDE 27 mmol/l (22-30); CHLORIDE 103 mmol/l (95-108); CREATININE 0.9 mg/dL (0.7-1.3); GFR > 60 ML/MIN (>=60 (CALC)); GFR FOR AFR.AMER. > 60 ML/MIN (>=60 (CALC)); MAGNESIUM 1.8 mg/dL (1.6-2.3); POTASSIUM 4.3 mmol/l (3.5-5.1); SODIUM 137 mmol/l (137-146)
[2019-08-10 07:54] VITALS: BP 154/96
--- NOTE | 2019-08-10 08:30 | NUR ---
ASSESSMENT DONE. PT IS A&O X3. PT DENIES PAIN AT THIS TIME. IVF INFUSING WELL. PT REQUESTED ICE PACK FOR KNEE. PROVIDED ICE PACK FOR HIS KNEE. RIGHT KNEE INCISION CDI. PT DENIES ANY OTHER NEEDS AT THIS TIME. CALL LIGHT IN REACH.
--- NOTE | 2019-08-10 11:59 | NUR ---
PT IS RESTING IN BED VISITING WITH HIS IN ROOM. PT DENIES ANY NEEDS AT THIS TIME. CALL LIGHT IN REACH.
[2019-08-10 14:20] VITALS: BP 111/73
--- NOTE | 2019-08-10 15:44 | NUR ---
PT IS RESTING IN BED WITH NO S/S OF DISTRESS NOTED. PT DENIES ANY NEEDS AT THIS TIME. CALL LIGHT IN REACH.
[2019-08-10 19:30] VITALS: BP 131/67
--- NOTE | 2019-08-10 19:35 | NUR ---
PT. SITTING UP IN BED WITH ICE PACK TO RIGHT KNEE AND SWELLING NOTED. ASSESSMENT COMPLETED. ENCOURAGED USE OF I/S AND VERBALIZES UNDERSTANDING. NO SOB NOTED AND PT. DENIES COUGH AT THIS TIME. UPDATED ON POC. CALL LIGHT IS IN REACH. WILL CONTINUE TO MONITOR. ENCOURAGED TO CALL FOR ANY NEEDS.
--- NOTE | 2019-08-10 20:53 | NUR ---
PT. REQUESTING PRN RESTORIL AND KLONOPIN, REPORTS HE TAKES BOTH TOGETHER AT HOME, MEDICATED PER ORDER.
--- NOTE | 2019-08-11 00:30 | NUR ---
PT. RESTING IN BED WITH EYES CLOSED. RESP. EVEN AND UNLABORED. VANCO TROUGH 10 AND ORDERED VANCO HUNG. CALL LIGHT IS IN REACH.
--- NOTE | 2019-08-11 02:09 | NUR ---
RESTING IN BED WITH EYES CLOSED; RESP. EVEN AND UNLABORED.
[2019-08-11 04:34] VITALS: BP 135/72
--- NOTE | 2019-08-11 07:50 | NUR ---
PT AMBULATING IN ROOM, PT TO RECLINER AT BEDSIDE, DISCUSSED POC, ASSESSMENT COMPLETED. PT ALERT AND ORIENTED X3, RESP EVEN AND UNLABORED. PT DENIES ANY NEEDS OR COMPLAINTS AT THIS TIME, CALL LIGHT IN REACH,CONTINUE TO MONITOR.
[2019-08-11 07:54] VITALS: BP 125/72
[2019-08-11 07:57] VITALS: BP 125/72
--- NOTE | 2019-08-11 12:15 | NUR ---
PT RESTING IN RECLINER AT BEDSIDE, PT VOICES NO NEEDS OR COMPLAINTS AT THIS TIME. IV VANCO INFUSING. CALL LIGHT IN REACH,CONTINUE TO MONITOR.
--- NOTE | 2019-08-11 14:11 | NUR ---
S: JESSE QUEEN is a 69 M who presents with PNEUMONIA All medications in patient's chart were reviewed. O: VS: BP 125/72 , P 61, RR 19,T 97.1 W 71kg, HT 69IN, Scr=0.9, A: Blood culture <is pending/show> which is sensitive to <>. P: Patient is on CEFEPIME Q12H. Vancomycin ordered for pharmacy to dose. Start Vancomycin 1 GRAM IV Q12H. Vancomycin trough is drawn before the 4th dose on 08/12/19 2330. Vancomycin goal trough is between <15-20 mcg/ml>. Pharmacy will follow and or advise on antibiotics use as needed.
[2019-08-11] MEDS ORDERED: LEVAQUIN750 MG PO (15:10)
--- NOTE | 2019-08-11 15:50 | NUR ---
PT SITTING IN CHAIR AT BEDSIDE, DISCUSSED DISCHARGE INSTRUCTIONS, IV REMOVED, CATHETER INTACT. PT GETTING DRESSED.
--- NOTE | 2019-08-11 15:56 | NUR ---
Discharge instructions given. Patient verbalizes understanding of same. Discharged in stable condition via Wheelchair to Home with spouse. All belongings sent with pt.
--- NOTE | 2019-08-13 13:43 | NUR ---
Post discharge pneumonia call completed 08/13/19 @ 1:48 pm. Pt. states his breathing is good and he no longer has the burning sensation in his lung. Pt. obtained Levaquin upon discharge and is taking with no difficulties. He is now experiencing difficulty controlling his urine. Pt. has placed call to PCP office and is awaiting a return call and direction from doctor. No needs or questions from patient at this time. Instructed patient to call if he needed any additional assistance from [facility]. Pt. grateful for call.
[2019-09-05] MEDS ORDERED: AMBIEN5 MG PO (11:48)
== END 2019-08-11 15:56 | disposition home or self-care (01) | DRG 195 ==
LOC: ED 10:20 → ED-I 12:25 → ED 12:42 → MS2 12:43
PROVIDERS: Family Medicine; Nurse Practitioner Family; ADMIT Internal Medicine; ATTEND Internal Medicine
DX: J18.9 Pneumonia, unspecified organism (principal); I10 Essential (primary) hypertension; I25.10 Atherosclerotic heart disease of native coronary artery without angina pectoris; F41.9 Anxiety disorder, unspecified; N40.0 Benign prostatic hyperplasia without lower urinary tract symptoms; B19.20 Unspecified viral hepatitis C without hepatic coma; G47.00 Insomnia, unspecified; Z96.651 Presence of right artificial knee joint; Z87.891 Personal history of nicotine dependence
CPT/HCPCS: G0378; J0692; J3370; Q9967

== ENCOUNTER 2020-01-30 11:14 | Emergency (ER) | payer OTHER, MEDICARE ==
[~2020-01-30] VITALS: Ht 175.3 cm; Wt 65.0 kg
[~2020-01-30 11:14] MED LIST changes: +AMBIEN5 MG PO; +LEVAQUIN750 MG PO
[2020-01-30 14:01] LABS: HEMATOCRIT 46.4 % (39.0-50.0); HEMOGLOBIN 14.2 g/dl (14.0-18.0); IMMATURE GRANULOCYTES 0.3 % (0.0-5.0); MEAN CORPUSCULAR HGB 27.8 pG CALC (26.0-32.0); MEAN CORPUSCULAR HGB CONC 30.6 g/dL CAL (32.0-36.0); NEUT# 4.84 thou/uL (1.82-7.42); RED BLOOD COUNT 5.1 mill/uL (4.70-6.10)
[2020-01-30 14:17] LABS: ALBUMIN 5.1 g/dL (3.2-5.0); ALKALINE PHOSPHATASE 88 u/l (38-126); ANION GAP 10 (6-22 (CALC)); BILIRUBIN, TOTAL 0.5 mg/dL (0.0-1.4); BUN 18 mg/dL (8-23); BUN/CREATININE RATIO 20 (12-20 (CALC)); CARBON DIOXIDE 31 mmol/l (22-30); CHLORIDE 101 mmol/l (95-108); CREATININE 0.9 mg/dL (0.7-1.3); GFR > 60 ML/MIN (>=60 (CALC)); GFR FOR AFR.AMER. > 60 ML/MIN (>=60 (CALC)); LIPASE 112 u/l (23-300); POTASSIUM 4.2 mmol/l (3.5-5.1); SGOT/AST 33 u/l (19-48); SODIUM 138 mmol/l (137-146); TOTAL PROTEIN 8.1 g/dL (6.3-8.2)
[2020-01-30] MEDS ORDERED: NIFEDIPINE ER60 MG PO (14:41)
[2020-01-30] MEDS ORDERED: IRON45 MG PO (14:44)
[2020-01-30] MEDS ORDERED: REMERON15 MG PO (14:45)
[2020-01-30] MEDS ORDERED: DITROPAN5 MG/TA1 PO (14:46)
[2020-01-30] MEDS ORDERED: VITAMIN B-121000 MCG PO (14:46)
[2020-01-30 17:28] VITALS: BP 178/92
== END 2020-01-30 17:28 | DRG 552 ==
LOC: ED 11:14
PROVIDERS: Family Medicine
DX: S12.500A Unspecified displaced fracture of sixth cervical vertebra, initial encounter for closed fracture (principal); M25.561 Pain in right knee; R91.8 Other nonspecific abnormal finding of lung field; I10 Essential (primary) hypertension; Y92.007 Garden or yard of unspecified non-institutional (private) residence as the place of occurrence of the external cause; W01.198A Fall on same level from slipping, tripping and stumbling with subsequent striking against other object, initial encounter; Z98.84 Bariatric surgery status; Z96.651 Presence of right artificial knee joint; Z20.828 Contact with and (suspected) exposure to other viral communicable diseases

== ENCOUNTER 2020-12-27 19:27 | Emergency (ER) | payer MEDICARE, OTHER ==
[~2020-12-27] VITALS: Ht 175.3 cm; Wt 71.8 kg
[~2020-12-27 19:27] MED LIST changes: +CALCIUM600 M1 PO; +DITROPAN5 MG/TA1 PO; +IRON45 MG PO; +MULTI VIT PO; +NIFEDIPINE ER60 MG PO; +REMERON15 MG PO; +VITAMIN B-121000 MCG PO; +VITAMIN C1000 MG PO; +VITAMIN D325 MCG PO
[2020-12-27 20:25] LABS: HEMOGLOBIN 13.3 g/dl (14.0-18.0); IMMATURE GRANULOCYTES 0.1 % (0.0-5.0); MEAN CELL VOLUME 92.5 fL CALC (80.0-100.0); MEAN CORPUSCULAR HGB 28.6 pG CALC (26.0-32.0); MEAN CORPUSCULAR HGB CONC 30.9 g/dL CAL (32.0-36.0); NEUT# 4.57 thou/uL (1.82-7.42); RED BLOOD COUNT 4.65 mill/uL (4.70-6.10); RED CELL DISTRI WIDTH 13.1 % (11.5-15.5)
[2020-12-27 20:30] LABS: ALBUMIN 4.2 g/dL (3.2-5.0); ALKALINE PHOSPHATASE 57 u/l (38-126); ANION GAP 13 (6-22 (CALC)); BUN 21 mg/dL (8-23); BUN/CREATININE RATIO 20 (12-20 (CALC)); CARBON DIOXIDE 27 mmol/l (22-30); CHLORIDE 100 mmol/l (95-108); CREATININE 1.1 mg/dL (0.7-1.3); GFR > 60 ML/MIN (>=60 (CALC)); GFR FOR AFR.AMER. > 60 ML/MIN (>=60 (CALC)); POTASSIUM 4.1 mmol/l (3.5-5.1); SGOT/AST 44 u/l (19-48); SODIUM 136 mmol/l (137-146); TOTAL PROTEIN 7.3 g/dL (6.3-8.2)
[2020-12-27 20:32] LABS: BILIRUBIN, TOTAL 0.3 mg/dL (0.0-1.4)
[2020-12-27 23:56] VITALS: BP 159/75
== END 2020-12-27 23:56 | disposition short-term general hospital (02) ==
LOC: ED 19:27
PROVIDERS: Emergency Medicine
DX: R00.1 Bradycardia, unspecified (principal); I10 Essential (primary) hypertension; K21.9 Gastro-esophageal reflux disease without esophagitis; Z98.84 Bariatric surgery status

== ENCOUNTER 2021-07-18 09:54 | Emergency (ER) | payer MEDICARE, OTHER ==
[~2021-07-18] VITALS: Ht 175.3 cm; Wt 75.0 kg
[2021-07-18 10:50] VITALS: BP 164/76
[2021-07-18] MEDS ORDERED: ZPAK PO (11:41)
[2021-07-18] MEDS ORDERED: TESSALON PERLE100 MG PO (11:41)
[2021-07-19] MEDS ORDERED: TRAZODONE50 MG PO (07:46)
[2021-07-19] MEDS ORDERED: CLONAZEPAM1 MG PO (07:46)
[2021-07-19] MEDS ORDERED: MIRTAZAPINE15 MG PO (07:46)
[2021-07-19] MEDS ORDERED: DECADRON6 MG PO (10:38)
[2021-07-20] MEDS ORDERED: ZPAK PO (12:29)
== END 2021-07-18 11:50 | disposition home or self-care (01) ==
LOC: ED 09:54
DX: U07.1 COVID-19 (principal); J40 Bronchitis, not specified as acute or chronic; I10 Essential (primary) hypertension; K21.9 Gastro-esophageal reflux disease without esophagitis

== ENCOUNTER 2021-07-18 21:21 | Observation (INO) | payer MEDICARE, OTHER ==
[~2021-07-18] VITALS: Ht 175.3 cm; Wt 73.8 kg
[~2021-07-18 21:21] MED LIST changes: +TESSALON PERLE100 MG PO; +ZPAK PO
--- NOTE | 2021-07-18 21:22 | NUR ---
BY EMS TO ROOM
[2021-07-18 21:56] LABS: HEMATOCRIT 40.7 % (39.0-50.0); HEMOGLOBIN 12.6 g/dl (14.0-18.0); IMMATURE GRANULOCYTES 0.2 % (0.0-5.0); MEAN CELL VOLUME 94.4 fL CALC (80.0-100.0); MEAN CORPUSCULAR HGB 29.2 pG CALC (26.0-32.0); NEUT# 9.75 thou/uL (1.82-7.42); RED BLOOD COUNT 4.31 mill/uL (4.70-6.10); RED CELL DISTRI WIDTH 13.4 % (11.5-15.5)
--- NOTE | 2021-07-18 22:00 | NUR ---
REPORT GIVEN BY ANNE BOLANOS
[2021-07-18 22:11] LABS: ALBUMIN 3.9 g/dL (3.2-5.0); ALKALINE PHOSPHATASE 60 u/l (38-126); BILIRUBIN, TOTAL 0.8 mg/dL (0.0-1.4); BUN 12 mg/dL (8-23); BUN/CREATININE RATIO 11 (12-20 (CALC)); CARBON DIOXIDE 30 mmol/l (22-30); CHLORIDE 98 mmol/l (95-108); CREATININE 1.1 mg/dL (0.7-1.3); GFR > 60 ML/MIN (>=60 (CALC)); GFR FOR AFR.AMER. > 60 ML/MIN (>=60 (CALC)); SGOT/AST 28 u/l (19-48); TOTAL PROTEIN 7.1 g/dL (6.3-8.2)
[2021-07-18 22:13] LABS: ANION GAP 11 (6-22 (CALC)); INTERNATIONAL NORMALIZED RATIO 1.2 RATIO (0.7-1.3); POTASSIUM 3.8 mmol/l (3.5-5.1); PROTHROMBIN TIME 12.7 SECONDS (9.0-12.5); SODIUM 135 mmol/l (137-146)
[2021-07-18 22:21] LABS: MYOGLOBIN 73 ng/mL (0 - 121)
--- NOTE | 2021-07-18 23:13 | NUR ---
PT SLEEPING ON ED COT; PT PLACED ON 2L VIA NASAL CANNULA DUE TO PT O2 SAT @88% WHEN ASLEEP.
--- NOTE | 2021-07-19 00:05 | NUR ---
PT SLEEPING COMFORTABLY ON ED COT
--- NOTE | 2021-07-19 01:06 | NUR ---
Admission Note Report Given to: MIGUE BOLANOS Transported by: Wheelchair X Stretcher Transported with: X Nurse Transporter X Patent IV O2 Refrigerated National Truck Driver Location: X ICU MS2
--- NOTE | 2021-07-19 01:20 | NUR ---
PT ARRIVED TO UNIT VIA STRETCHER AT 0120 WITH ER STAFF; VERY DROWSY, ORIENTED X 3. ASSISTED SELF HORIZONTALLY FROM STRETCHER TO BED SLOWLY, WITH VERBAL ENCOURAGEMENT. DENIES PAIN. RESPIRATIONS EVEN AND UNLABORED ON OXYGEN 2L VIA NC; SPO2 99%; VSS. ASSESSMENT COMPLETED AND KEIRA KOHLER APPLIED. INFORMED THAT WE NEED A URINE SPECIMEN AND INSTRUCTED TO USE BEDSIDE URINAL. ORIENTED TO ROOM AND CALL LIGHT SYSTEM. PLAN OF CARE DISCUSSED; PT ENCOURAGED TO VERBALIZE CONCERNS; FALLS ASLEEP DURING DISCUSSION, BUT AWAKENS TO VERBAL STIMULI. SAFETY MEASURES IN PLACE; CALL LIGHT WITHIN REACH.
[2021-07-19 01:30] VITALS: BP 140/79
--- NOTE | 2021-07-19 02:14 | NUR ---
IV FLUIDS NOW INFUSING AT 125ML/HR; ZITHROMAX INFUSING SINCE ARRIVAL. PT DOES C/O SORE THROAT. NO OTHER COMPLAINTS AT THIS TIME. ASLEEP IN SEMI FOWLERS POSITION.
[2021-07-19 05:01] VITALS: BP 118/71
--- NOTE | 2021-07-19 05:02 | NUR ---
BODY TEMPERATURE IS LOW; CURRENTLY 96.1 TEMPORAL AND AXILLARY. WARM BLANKETS APPLIED AND ROOM TEMPERTURE WARMED; WILL RECHECK. PT AROUSABLE AND DOES STATES THAT HE FEELS COLD.
--- NOTE | 2021-07-19 05:31 | NUR ---
, GABRIEL, CALLED FOR UPDATE; QUESTIONS ANSWERED TO SATISFACTION. STATES THAT AT ABOUT 2014 LAST NIGHT PATIENT DID TAKE A TRAZADONE AND AN AMBIEN. PRIOR TO TAKING THESE MEDICATIONS HE COULD NOT KEEP HIS BALANCE, HAD VERY SHAKEY HANDS AND COULD NOT STAND UP SO SHE CALLED EMS. ADDITIONAL MEDICAL AND SURGICAL HISTORY OBTAINED.
--- NOTE | 2021-07-19 05:45 | NUR ---
PT NOTED TO BE INCONTINENT OF LARGE URINE; LINENS CHANGED. PT MORE ALERT; AMBULATORY TO BATHROOM TO VOID; SPECIMEN COLLECTED AND SENT TO LAB. WARM BLANKET PROVIDED; TEMPERATURE UP TO 97.7. USING CELL PHONE TO CALL FAMILY. ORIENTED AGAIN TO ROOM AND CALL LIGHT SYSTEM.
[2021-07-19 06:15] LABS: URINE BILIRUBIN - DIPSTICK NEGATIVE (NEGATIVE); URINE BLOOD DIPSTICK NEGATIVE (NEGATIVE); URINE COLOR YELLOW; URINE GLUCOSE - DIPSTICK NEGATIVE (NEGATIVE); URINE KETONE NEGATIVE (NEGATIVE); URINE LEUK ESTERASE NEGATIVE (NEGATIVE); URINE PH 5.5 (4.5-8.0); URINE PROTEIN - DIPSTICK NEGATIVE (NEG-TRACE); URINE SPECIFIC GRAVITY <=1.005; URINE UROBILINOGEN - DIPSTICK 0.2 E.U./dL (0.2)
[2021-07-19 06:23] LABS: URINE NITRITE - DIPSTICK NEGATIVE (Negative)
--- NOTE | 2021-07-19 06:54 | NUR ---
PT REPORT RECEIVED FROM CHIEF PRIVACY OFFICER. PT IS RESTING QUIETLY ON BED AT THIS TIME, VITAL SIGNS STABLE. DENIES ANY NEEDS AT THIS TIME.
[2021-07-19] MEDS ORDERED: MIRTAZAPINE15 MG PO (07:46)
[2021-07-19] MEDS ORDERED: CLONAZEPAM1 MG PO (07:46)
[2021-07-19] MEDS ORDERED: TRAZODONE50 MG PO (07:46)
[2021-07-19 09:00] VITALS: BP 127/75
[2021-07-19] MEDS ORDERED: DECADRON6 MG PO (10:38)
[2021-07-19 10:59] VITALS: BP 115/72
--- NOTE | 2021-07-19 11:00 | NUR ---
doctor jimenez in to see pt, walk test done by criminal records technician and pts sat stayed in the low 90's, after talking to pt who wants to go home dr. gaona decided to send pt home on steroids and antibiotics. family notified
--- NOTE | 2021-07-19 11:26 | NUR ---
pt called and she will be here to pick him up in about an hour
--- NOTE | 2021-07-19 11:28 | NUR ---
highlighted instructions for pt, and waiting for discharge. pt voices understanding. eating lunch at this time
[2021-07-20] MEDS ORDERED: ZPAK PO (12:29)
== END 2021-07-19 13:00 | disposition home or self-care (01) ==
LOC: ED 21:21 → ED-I 23:29 → ED 23:54 → ICU 23:55
PROVIDERS: Family Medicine; ADMIT Internal Medicine; ATTEND Internal Medicine
DX: U07.1 COVID-19 (principal); J12.82 Pneumonia due to coronavirus disease 2019; J44.0 Chronic obstructive pulmonary disease with (acute) lower respiratory infection; R09.02 Hypoxemia; I10 Essential (primary) hypertension; I25.10 Atherosclerotic heart disease of native coronary artery without angina pectoris; N40.0 Benign prostatic hyperplasia without lower urinary tract symptoms; F41.9 Anxiety disorder, unspecified; B19.20 Unspecified viral hepatitis C without hepatic coma; K21.9 Gastro-esophageal reflux disease without esophagitis; Z87.01 Personal history of pneumonia (recurrent)
CPT/HCPCS: J1650; Q9967

== ENCOUNTER 2021-08-10 06:38 | Emergency (ER) | payer MEDICARE, OTHER ==
[~2021-08-10] VITALS: Ht 175.3 cm; Wt 72.0 kg
[~2021-08-10 06:38] MED LIST changes: +DECADRON6 MG PO; +MIRTAZAPINE15 MG PO; +TRAZODONE50 MG PO
[2021-08-10] MEDS ORDERED: MIRTAZAPINE15 MG PO (07:07)
[2021-08-10 07:32] LABS: HEMATOCRIT 42.2 % (39.0-50.0); HEMOGLOBIN 12.9 g/dl (14.0-18.0); IMMATURE GRANULOCYTES 0.2 % (0.0-5.0); MEAN CELL VOLUME 95.9 fL CALC (80.0-100.0); MEAN CORPUSCULAR HGB 29.3 pG CALC (26.0-32.0); MEAN CORPUSCULAR HGB CONC 30.6 g/dL CAL (32.0-36.0); NEUT# 8.5 thou/uL (1.82-7.42); RED BLOOD COUNT 4.4 mill/uL (4.70-6.10); RED CELL DISTRI WIDTH 13.8 % (11.5-15.5)
[2021-08-10 07:54] LABS: ALKALINE PHOSPHATASE 58 u/l (38-126); ANION GAP 15 (6-22 (CALC)); BILIRUBIN, TOTAL 0.6 mg/dL (0.0-1.4); BUN 19 mg/dL (8-23); BUN/CREATININE RATIO 22 (12-20 (CALC)); CARBON DIOXIDE 28 mmol/l (22-30); CHLORIDE 99 mmol/l (95-108); CREATININE 0.9 mg/dL (0.7-1.3); GFR > 60 ML/MIN (>=60 (CALC)); GFR FOR AFR.AMER. > 60 ML/MIN (>=60 (CALC)); POTASSIUM 4.1 mmol/l (3.5-5.1); SGOT/AST 29 u/l (19-48); SODIUM 137 mmol/l (137-146); TOTAL PROTEIN 7.5 g/dL (6.3-8.2)
[2021-08-10] MEDS ORDERED: ZPAK PO (11:11)
[2021-08-10] MEDS ORDERED: AMOX/K CLAV875 M1 PO (11:11)
[2021-08-10 11:19] VITALS: BP 173/76
== END 2021-08-10 11:25 | disposition home or self-care (01) ==
LOC: ED 06:38
PROVIDERS: Family Medicine
DX: J18.9 Pneumonia, unspecified organism (principal); I10 Essential (primary) hypertension; K21.9 Gastro-esophageal reflux disease without esophagitis; Z87.01 Personal history of pneumonia (recurrent); Z95.0 Presence of cardiac pacemaker; Z98.84 Bariatric surgery status; Z86.16 Personal history of COVID-19; Z20.822 Contact with and (suspected) exposure to COVID-19
CPT/HCPCS: Q9967

== ENCOUNTER 2021-08-15 08:02 | Emergency (ER) | payer MEDICARE, OTHER ==
[~2021-08-15] VITALS: Ht 175.3 cm; Wt 72.7 kg
[2021-08-15 09:41] LABS: HEMATOCRIT 41.1 % (39.0-50.0); HEMOGLOBIN 12.5 g/dl (14.0-18.0); MEAN CELL VOLUME 94.9 fL CALC (80.0-100.0); MEAN CORPUSCULAR HGB 28.9 pG CALC (26.0-32.0); MEAN CORPUSCULAR HGB CONC 30.4 g/dL CAL (32.0-36.0); NEUT# 3.84 thou/uL (1.82-7.42); RED BLOOD COUNT 4.33 mill/uL (4.70-6.10)
[2021-08-15 09:48] LABS: ALBUMIN 3.9 g/dL (3.2-5.0); ALKALINE PHOSPHATASE 66 u/l (38-126); ANION GAP 16 (6-22 (CALC)); BILIRUBIN, TOTAL 0.5 mg/dL (0.0-1.4); BUN 15 mg/dL (8-23); BUN/CREATININE RATIO 17 (12-20 (CALC)); CARBON DIOXIDE 26 mmol/l (22-30); CHLORIDE 100 mmol/l (95-108); CREATININE 0.9 mg/dL (0.7-1.3); GFR > 60 ML/MIN (>=60 (CALC)); GFR FOR AFR.AMER. > 60 ML/MIN (>=60 (CALC)); SGOT/AST 26 u/l (19-48); SODIUM 138 mmol/l (137-146); TOTAL PROTEIN 7.4 g/dL (6.3-8.2)
[2021-08-15] MEDS ORDERED: PROAIR HFA108 MCG/AC IN (16:31)
[2021-08-15] MEDS ORDERED: TESSALON PERLE100 MG PO (16:31)
[2021-08-15] MEDS ORDERED: LEVAQUIN750 M1 PO (16:31)
[2021-08-15 17:22] VITALS: BP 138/83
== END 2021-08-15 17:08 | disposition home or self-care (01) ==
LOC: ED 08:02
PROVIDERS: Emergency Medicine
DX: J18.9 Pneumonia, unspecified organism (principal); I10 Essential (primary) hypertension; K21.9 Gastro-esophageal reflux disease without esophagitis; Z87.01 Personal history of pneumonia (recurrent); Z95.0 Presence of cardiac pacemaker; Z98.84 Bariatric surgery status; Z86.16 Personal history of COVID-19
CPT/HCPCS: Q9967

== ENCOUNTER 2021-12-19 12:09 | Emergency (ER) | payer OTHER, MEDICARE ==
[~2021-12-19] VITALS: Ht 175.3 cm; Wt 73.0 kg
[~2021-12-19 12:09] MED LIST changes: +LEVAQUIN750 M1 PO; +PROAIR HFA108 MCG/AC IN
[2021-12-19 12:14] VITALS: BP 142/85
[2021-12-19 12:15] VITALS: BP 136/76
[2021-12-19 12:30] VITALS: BP 131/72
[2021-12-19 13:00] VITALS: BP 125/73
[2021-12-19 13:00] LABS: HEMATOCRIT 39.5 % (39.0-50.0); HEMOGLOBIN 12.4 g/dl (14.0-18.0); MEAN CELL VOLUME 92.7 fL CALC (80.0-100.0); MEAN CORPUSCULAR HGB 29.1 pG CALC (26.0-32.0); MEAN CORPUSCULAR HGB CONC 31.4 g/dL CAL (32.0-36.0); NEUT# 6.83 thou/uL (1.82-7.42); RED BLOOD COUNT 4.26 mill/uL (4.70-6.10); RED CELL DISTRI WIDTH 13.9 % (11.5-15.5)
[2021-12-19 13:05] LABS: ALBUMIN 4.3 g/dL (3.2-5.0); ALKALINE PHOSPHATASE 82 u/l (38-126); ANION GAP 11 (6-22 (CALC)); BILIRUBIN, TOTAL 0.4 mg/dL (0.0-1.4); BUN 19 mg/dL (8-23); BUN/CREATININE RATIO 17 (12-20 (CALC)); CARBON DIOXIDE 29 mmol/l (22-30); CHLORIDE 100 mmol/l (95-108); CREATININE 1.1 mg/dL (0.7-1.3); GFR FOR AFR.AMER. > 60 ML/MIN (>=60 (CALC)); GFR OTHER RACES > 60 ML/MIN (>=60 (CALC)); POTASSIUM 3.9 mmol/l (3.5-5.1); SODIUM 135 mmol/l (137-146)
[2021-12-19 13:13] LABS: SGOT/AST 130 u/l (19-48)
[2021-12-19 13:15] VITALS: BP 130/71
[2021-12-19 13:24] VITALS: BP 130/71
[2021-12-19] MEDS ORDERED: HYDROCO/APAP1 TA9 PO (13:25)
== END 2021-12-19 13:30 | disposition home or self-care (01) | DRG 948 ==
LOC: ED 12:09
PROVIDERS: Family Medicine
DX: R53.83 Other fatigue (principal); M54.2 Cervicalgia; R05.9 Cough, unspecified; R74.01 Elevation of levels of liver transaminase levels; I10 Essential (primary) hypertension; K21.9 Gastro-esophageal reflux disease without esophagitis; Z86.16 Personal history of COVID-19; Z95.0 Presence of cardiac pacemaker; Z87.01 Personal history of pneumonia (recurrent); Z20.822 Contact with and (suspected) exposure to COVID-19

== ENCOUNTER 2022-08-22 09:57 | Emergency (ER) | payer MEDICARE, OTHER ==
[~2022-08-22] VITALS: Ht 175.3 cm; Wt 65.0 kg
[~2022-08-22 09:57] MED LIST changes: +HYDROCO/APAP1 TA9 PO
[2022-08-22 10:16] VITALS: BP 131/80
[2022-08-22 10:30] VITALS: BP 116/66
[2022-08-22 10:36] LABS: BASO% 0.4 % (0-3); EOS% 4.5 % (0-8); HEMATOCRIT 42.6 % (39.0-50.0); MEAN CELL VOLUME 92.4 fL CALC (80.0-100.0); MEAN CORPUSCULAR HGB 28.2 pG CALC (26.0-32.0); MEAN CORPUSCULAR HGB CONC 30.5 g/dL CAL (32.0-36.0); MONO% 9.6 % (2-13); NEUT# 2.97 thou/uL (1.82-7.42); NEUT% 66.5 % (42-76); RED BLOOD COUNT 4.61 mill/uL (4.70-6.10); RED CELL DISTRI WIDTH 12.9 % (11.5-15.5)
[2022-08-22 10:45] VITALS: BP 119/69
[2022-08-22 10:46] LABS: ALBUMIN 4.2 g/dL (3.2-5.0); ANION GAP 11 (6-22 (CALC)); BILIRUBIN, TOTAL 0.2 mg/dL (0.2-1.3); BUN 14 mg/dL (8-23); BUN/CREATININE RATIO 16 (12-20 (CALC)); CARBON DIOXIDE 31 mmol/l (22-30); CHLORIDE 99 mmol/l (95-108); CREATININE 0.9 mg/dL (0.7-1.3); GFR FOR AFR.AMER. > 60 ML/MIN (>=60 (CALC)); GFR OTHER RACES > 60 ML/MIN (>=60 (CALC)); POTASSIUM 4.5 mmol/l (3.5-5.1); SODIUM 136 mmol/l (137-146); TOTAL PROTEIN 7.3 g/dL (6.3-8.2)
[2022-08-22 10:58] LABS: ALKALINE PHOSPHATASE 105 u/l (38-126); SGOT/AST 50 u/l (19-48)
[2022-08-22 11:00] VITALS: BP 118/72
[2022-08-22] MEDS ORDERED: ZPAK PO (11:12)
[2022-08-22 11:15] VITALS: BP 119/71
== END 2022-08-22 11:20 | disposition home or self-care (01) ==
LOC: ED 09:57
PROVIDERS: Family Medicine
DX: J06.9 Acute upper respiratory infection, unspecified (principal); I10 Essential (primary) hypertension; K21.9 Gastro-esophageal reflux disease without esophagitis; Z86.16 Personal history of COVID-19; Z95.0 Presence of cardiac pacemaker; Z87.01 Personal history of pneumonia (recurrent); Z20.822 Contact with and (suspected) exposure to COVID-19

== ENCOUNTER 2022-08-30 17:27 | Emergency (ER) | payer MEDICARE, OTHER ==
[2022-08-30] VITALS (7 sets, daily range): BP systolic 161–176; BP diastolic 79–117
[~2022-08-30] VITALS: Ht 175.3 cm; Wt 65.0 kg
[2022-08-30] MEDS ORDERED: DICLOFENAC SODIUM1 % TD (19:11)
[2022-08-30] MEDS ORDERED: MEDDOSEPAK PO (19:11)
[2022-08-30] MEDS ORDERED: METHOCARBAMOL500 MG PO (19:11)
[2022-08-30] MEDS ORDERED: TOBRADEX OU (19:31)
== END 2022-08-30 19:55 | disposition home or self-care (01) ==
LOC: ED 17:27
DX: S46.911A Strain of unspecified muscle, fascia and tendon at shoulder and upper arm level, right arm, initial encounter (principal); H57.13 Ocular pain, bilateral; H57.89 Other specified disorders of eye and adnexa; I10 Essential (primary) hypertension; K21.9 Gastro-esophageal reflux disease without esophagitis; X50.3XXA Overexertion from repetitive movements, initial encounter; Y93.H1 Activity, digging, shoveling and raking; Y92.007 Garden or yard of unspecified non-institutional (private) residence as the place of occurrence of the external cause; Z87.01 Personal history of pneumonia (recurrent); Z95.0 Presence of cardiac pacemaker; Z86.16 Personal history of COVID-19

== ENCOUNTER 2022-12-05 11:33 | Emergency (ER) | payer MEDICARE, OTHER ==
[~2022-12-05] VITALS: Ht 175.3 cm; Wt 69.4 kg
[~2022-12-05 11:33] MED LIST changes: +DICLOFENAC SODIUM1 % TD; +MEDDOSEPAK PO; +METHOCARBAMOL500 MG PO; +TOBRADEX OU
[2022-12-05 12:16] VITALS: BP 135/87
[2022-12-05] MEDS ORDERED: TAMSULOSIN0.4 MG PO (12:21)
[2022-12-05] MEDS ORDERED: LEVOFLOXACIN750 MG PO (12:21)
[2022-12-05 12:30] VITALS: BP 142/73
[2022-12-05 12:45] VITALS: BP 127/72
[2022-12-05 13:00] VITALS: BP 115/73
[2022-12-05 13:05] LABS: BASO% 0.3 % (0-3); EOS% 1.6 % (0-8); HEMATOCRIT 40.7 % (39.0-50.0); HEMOGLOBIN 12.6 g/dl (14.0-18.0); IMMATURE GRANULOCYTES 0.3 % (0.0-5.0); LYMPH% 14.8 % (15-41); MEAN CELL VOLUME 93.6 fL CALC (80.0-100.0); NEUT# 4.95 thou/uL (1.82-7.42); RED BLOOD COUNT 4.35 mill/uL (4.70-6.10)
[2022-12-05 13:14] LABS: ALBUMIN 4.1 g/dL (3.2-5.0); ALKALINE PHOSPHATASE 62 u/l (38-126); ANION GAP 11 (6-22 (CALC)); BILIRUBIN, TOTAL 0.5 mg/dL (0.2-1.3); BUN 22 mg/dL (8-23); BUN/CREATININE RATIO 22 (12-20 (CALC)); CARBON DIOXIDE 30 mmol/l (22-30); CHLORIDE 101 mmol/l (95-108); GFR FOR AFR.AMER. > 60 ML/MIN (>=60 (CALC)); GFR OTHER RACES > 60 ML/MIN (>=60 (CALC)); POTASSIUM 4.6 mmol/l (3.5-5.1); SGOT/AST 22 u/l (19-48); SODIUM 138 mmol/l (137-146); TOTAL PROTEIN 7.1 g/dL (6.3-8.2)
[2022-12-05 13:15] VITALS: BP 138/74
[2022-12-05] MEDS ORDERED: LEVAQUIN750 M1 PO (14:38)
[2022-12-05 15:00] VITALS: BP 138/74
== END 2022-12-05 15:32 | disposition home or self-care (01) ==
LOC: ED 11:33
PROVIDERS: Family Medicine
DX: J18.9 Pneumonia, unspecified organism (principal); I10 Essential (primary) hypertension; K21.9 Gastro-esophageal reflux disease without esophagitis; Z87.01 Personal history of pneumonia (recurrent); Z86.16 Personal history of COVID-19; Z95.0 Presence of cardiac pacemaker

== ENCOUNTER 2023-01-23 08:54 | Emergency (ER) | payer MEDICARE, OTHER ==
[2023-01-23] VITALS (9 sets, daily range): BP systolic 119–141; BP diastolic 66–88
[~2023-01-23] VITALS: Ht 175.3 cm; Wt 66.0 kg
[~2023-01-23 08:54] MED LIST changes: +LEVOFLOXACIN750 MG PO; +TAMSULOSIN0.4 MG PO
[2023-01-23 09:41] LABS: BASO% 0.3 % (0-3); EOS% 1.2 % (0-8); HEMOGLOBIN 12.9 g/dl (14.0-18.0); IMMATURE GRANULOCYTES 0.1 % (0.0-5.0); MEAN CELL VOLUME 90.9 fL CALC (80.0-100.0); MEAN CORPUSCULAR HGB 27.9 pG CALC (26.0-32.0); MEAN CORPUSCULAR HGB CONC 30.7 g/dL CAL (32.0-36.0); MONO% 4.8 % (2-13); NEUT# 5.72 thou/uL (1.82-7.42); NEUT% 76.6 % (42-76); RED BLOOD COUNT 4.62 mill/uL (4.70-6.10)
[2023-01-23 10:01] LABS: ALBUMIN 4.2 g/dL (3.2-5.0); ALKALINE PHOSPHATASE 68 u/l (38-126); ANION GAP 12 (6-22 (CALC)); BILIRUBIN, TOTAL 0.5 mg/dL (0.2-1.3); BUN 17 mg/dL (8-23); BUN/CREATININE RATIO 19 (12-20 (CALC)); CARBON DIOXIDE 26 mmol/l (22-30); CHLORIDE 102 mmol/l (95-108); CREATININE 0.9 mg/dL (0.7-1.3); GFR FOR AFR.AMER. > 60 ML/MIN (>=60 (CALC)); GFR OTHER RACES > 60 ML/MIN (>=60 (CALC)); POTASSIUM 4.1 mmol/l (3.5-5.1); SGOT/AST 31 u/l (19-48); SODIUM 136 mmol/l (137-146); TOTAL PROTEIN 7.4 g/dL (6.3-8.2)
[2023-01-23] MEDS ORDERED: ZPAK PO (10:49)
== END 2023-01-23 11:05 | disposition home or self-care (01) ==
LOC: ED 08:54
PROVIDERS: Family Medicine
DX: J40 Bronchitis, not specified as acute or chronic (principal); J44.9 Chronic obstructive pulmonary disease, unspecified; I10 Essential (primary) hypertension; K21.9 Gastro-esophageal reflux disease without esophagitis; Z87.01 Personal history of pneumonia (recurrent); Z86.16 Personal history of COVID-19; Z95.0 Presence of cardiac pacemaker; Z20.822 Contact with and (suspected) exposure to COVID-19

== ENCOUNTER 2023-02-28 20:36 | Observation (INO) | payer MEDICARE, OTHER ==
[2023-02-28] VITALS (12 sets, daily range): BP systolic 116–142; BP diastolic 66–101
[~2023-02-28] VITALS: Ht 175.3 cm; Wt 69.4 kg
[2023-02-28 21:14] LABS: BASO% 0.5 % (0-3); EOS% 2.2 % (0-8); HEMATOCRIT 35.8 % (39.0-50.0); HEMOGLOBIN 11.3 g/dl (14.0-18.0); LYMPH% 16.4 % (15-41); MEAN CELL VOLUME 91.1 fL CALC (80.0-100.0); MEAN CORPUSCULAR HGB 28.8 pG CALC (26.0-32.0); MEAN CORPUSCULAR HGB CONC 31.6 g/dL CAL (32.0-36.0); MONO% 8.5 % (2-13); NEUT# 4.23 thou/uL (1.82-7.42); NEUT% 72.4 % (42-76); RED BLOOD COUNT 3.93 mill/uL (4.70-6.10); RED CELL DISTRI WIDTH 13.8 % (11.5-15.5)
[2023-02-28 21:22] LABS: INTERNATIONAL NORMALIZED RATIO 1.2 RATIO (0.7-1.3); PROTHROMBIN TIME 11.6 SECONDS (9.0-12.5)
[2023-02-28 21:25] LABS: ALKALINE PHOSPHATASE 65 u/l (38-126); BILIRUBIN, TOTAL 0.4 mg/dL (0.2-1.3); BUN 27 mg/dL (8-23); BUN/CREATININE RATIO 27 (12-20 (CALC)); CALCULATED LDLCHOLESTEROL 83 mg/dL (62-129 (CALC)); CHLORIDE 107 mmol/l (95-108); CHOLESTEROL HDL RATIO 3.2 (<4.4 (CALC)); ETHYL ALCOHOL 0 mg/dl (0-30); GFR FOR AFR.AMER. > 60 ML/MIN (>=60 (CALC)); GFR OTHER RACES > 60 ML/MIN (>=60 (CALC)); HDL CHOLESTEROL 48 mg/dL (39.0-59.0); SGOT/AST 30 u/l (19-48); SODIUM 138 mmol/l (137-146); TOTAL CHOLESTEROL 153 mg/dl (0-199); TOTAL PROTEIN 6.6 g/dL (6.3-8.2); TOTAL TRIGLYCERIDES 116 mg/dl (0-149); VLDL CHOLESTROL 23 mg/dl (0-38 (CALC))
[2023-02-28 21:26] LABS: ANION GAP 13 (6-22 (CALC)); CARBON DIOXIDE 22 mmol/l (22-30); POTASSIUM 3.8 mmol/l (3.5-5.1)
[2023-02-28 22:39] LABS: URINE BILIRUBIN - DIPSTICK Negative (NEGATIVE); URINE BLOOD DIPSTICK Negative (NEGATIVE); URINE GLUCOSE - DIPSTICK Negative (NEGATIVE); URINE KETONE Negative (NEGATIVE); URINE LEUK ESTERASE Negative (NEGATIVE); URINE NITRITE - DIPSTICK Negative (Negative); URINE PH 5.5 (4.5-8.0); URINE PROTEIN - DIPSTICK Negative (NEG-TRACE); URINE UROBILINOGEN - DIPSTICK 0.2 E.U./dL (0.2)
[2023-02-28 22:45] LABS: URINE COLOR Yellow
[2023-03-01] VITALS (23 sets, daily range): BP systolic 116–158; BP diastolic 58–107
== END 2023-03-01 17:00 | disposition home or self-care (01) ==
LOC: ED 20:36 → ED-I 21:38 → ED 22:39 → ED-I 22:57 → ED 22:57 → ICU 22:58 → ED 03-01 01:44 → ICU 03-01 17:00
PROVIDERS: Family Medicine; ADMIT Internal Medicine; ATTEND Internal Medicine
DX: R55 Syncope and collapse (principal); G93.49 Other encephalopathy; I10 Essential (primary) hypertension; J44.9 Chronic obstructive pulmonary disease, unspecified; I25.10 Atherosclerotic heart disease of native coronary artery without angina pectoris; K21.9 Gastro-esophageal reflux disease without esophagitis; F41.9 Anxiety disorder, unspecified; B19.20 Unspecified viral hepatitis C without hepatic coma; N40.0 Benign prostatic hyperplasia without lower urinary tract symptoms; Z87.01 Personal history of pneumonia (recurrent); Z86.16 Personal history of COVID-19; Z95.0 Presence of cardiac pacemaker; Z98.84 Bariatric surgery status
CPT/HCPCS: Q9967

== ENCOUNTER 2023-07-25 07:17 | Day surgery (SDC) | payer MEDICARE, OTHER ==
[~2023-07-25] VITALS: Ht 175.3 cm; Wt 68.0 kg
[~2023-07-25 07:17] MED LIST changes: +ASPIRINCHW 81MG PO; +TUMERSAID PO
[2023-07-25 09:22] VITALS: BP 158/83
== END 2023-07-25 09:43 | disposition home or self-care (01) ==
LOC: ENDO 07:17 → ORM 14:40
PROVIDERS: ATTEND Internal Medicine Gastroenterology
PROC: 0DJD8ZZ Inspection of Lower Intestinal Tract, Via Natural or Artificial Opening Endoscopic (ICD-10-PCS; principal; 2023-07-25)
PROC: 0DB48ZX Excision of Esophagogastric Junction, Via Natural or Artificial Opening Endoscopic, Diagnostic (ICD-10-PCS; 2023-07-25)
PROC: 0DB78ZX Excision of Stomach, Pylorus, Via Natural or Artificial Opening Endoscopic, Diagnostic (ICD-10-PCS; 2023-07-25)
PROC: 0D738ZZ Dilation of Lower Esophagus, Via Natural or Artificial Opening Endoscopic (ICD-10-PCS; 2023-07-25)
DX: K57.30 Diverticulosis of large intestine without perforation or abscess without bleeding (principal); K64.8 Other hemorrhoids; Q43.9 Congenital malformation of intestine, unspecified; K22.2 Esophageal obstruction; K29.70 Gastritis, unspecified, without bleeding; I10 Essential (primary) hypertension; E11.40 Type 2 diabetes mellitus with diabetic neuropathy, unspecified; E11.69 Type 2 diabetes mellitus with other specified complication; E78.5 Hyperlipidemia, unspecified; I73.00 Raynaud's syndrome without gangrene; Z86.010 Personal history of colon polyps